=== PATIENT | male | born 1995 | race Caucasian/White ===

== ENCOUNTER 2020-04-12 20:56 | Inpatient (IN) ==
[2020-04-12 21:36] LABS: Basophils # (auto) 0.02 K/uL (0-0.2); Basophils % (auto) 0.2 %; Eosinophils # (auto) 0.09 K/uL (0-0.5); Eosinophils % (auto) 1.1 %; Hematocrit (blood only) 46.8 % (42-52); Hemoglobin 16.7 g/dL (14.0-18.0); Immature Granulocytes # (auto) 0.02 K/uL (0.00-0.02); Immature Granulocytes % (auto) 0.2 %; Lymphocytes # (auto) 2.84 K/uL (1.2-3.4); Lymphocytes % (auto) 34.5 %; Mean Corpuscular Hemoglobin 30.8 pg (25-34); Mean Corpuscular Hgb Conc 35.7 g/dL (32-36); Mean Corpuscular Volume 86.3 fL (80-100); Mean Platelet Volume 10.1 fL (7.4-10.4); Monocytes # (auto) 0.73 K/uL (0.11-0.59); Monocytes % (auto) 8.9 %; Neutrophils # (auto) 4.54 K/uL (1.4-6.5); Neutrophils % (auto) 55.1 %; Platelet Count 221 K/uL (130-400); RDW Coefficient of Variation 12.3 % (11.5-14.5); RDW Standard Deviation 38.4 fL (36.4-46.3); Red Blood Count 5.42 M/uL (4.7-6.1); White Blood Count 8.24 K/uL (4.8-10.8)
[2020-04-12 21:49] LABS: Appearance Urine Clear (Clear); Bilirubin Urine Negative (Negative); Blood Urine Negative (Negative); Color Urine Yellow; Glucose Urine UA Negative (Negative); Ketones Urine Negative (Negative); Leukocyte Esterase Urine Negative (Negative); Nitrite Urine Negative (Negative); Protein Urine Negative (Negative); Specific Gravity Urine 1.008 (1.000-1.030); Urobilinogen Urine Negative (Negative); pH Urine 5.5 (4.5-7.5)
[2020-04-12 22:23] LABS: Albumin Level 4.8 gm/dl (3.4-5.0); BUN Creatinine Ratio 14.1 (10-20); Calcium 8.8 mg/dl (8.5-10.1); Creatinine Clr Calc Pharmacy 122.2 ml/min; Est GFR (Non-African American) 88.9; Potassium 3.5 mmol/L (3.5-5.1)
[2020-04-12 22:26] LABS: Acetaminophen < 2 ug/ml (10-30); Salicylate < 1.7 mg/dl (2.8-20)
[2020-04-12 22:27] LABS: Amphetamines+Metham, Urine Neg (Neg); Barbiturates, Urine Neg (Neg); Benzodiazepine, Urine Neg (Neg); Cocaine, Urine Neg (Neg); MDMA (Ecstacy), Urine Neg (Neg); Methadone, Urine Neg (Neg); Opiate, Urine Neg (Neg); Phencyclidine, Urine Neg (Neg)
[2020-04-12 22:34] LABS: Albumin Globulin Ratio 1.2 (0.9-2); Bilirubin,Total 0.2 mg/dl (0.2-1); Globulin 3.9 gm/dl (2.5-4.0); Thyroid Stimulating Hormone 1.81 uIu/ml (0.300-4.500); Total Protein 8.7 gm/dl (6.4-8.2)
--- NOTE | 2020-04-12 23:48 | History & Physical Report ---
Date of Service April 12, 2020 Assessment & Plan (1) Suicide attempt: Suicide attempt/anxiety/depression/overdose of trazodone/alcohol use- Admit to telemetry and monitor for arrhythmia. NSS + KCl 20 mEq 100 mils per hour Regular diet Hold fluoxetine and trazodone. One-to-one observation. Consult psychiatry Present on Admission?: Yes (2) Overdose of trazodone: (3) Alcohol abuse: (4) Anxiety: (5) Depression: History of Present Illness Chief Complaint: The patient presented to the emergency department as an intentional trazodone overdose, reportedly having ingested 16 pills for a total of 800 mg, plus alcohol. Primary Care Provider: [facility] The patient is a 24-year-old male with a past medical history including anxiety and depression, who presents as noted above. Allergies Allergy/AdvReac Type Severity Reaction Status Date / Time No Known Allergies Allergy Unverified 04/12/20 21:14 Home Medications Home Medications Medication Instructions Recorded Confirmed Type fluoxetine 10 mg PO DAILY 04/12/20 04/12/20 History fluoxetine 20 mg PO DAILY 04/12/20 04/12/20 History trazodone 25 - 50 mg PO HS 04/12/20 04/12/20 History Past Med/Surg History Medical History (Updated 04/13/20 @ 01:35 by Corey Barrett) Anxiety Depression No pertinent family history Suicide attempt Surgical History (Updated 04/13/20 @ 01:31 by Corey Barrett) No pertinent past surgical history Social History Smoking Status: Never smoker Second Hand Exposure: No; Do You Dip or Chew Tobacco: No; Tobacco Cessation Education Requested by Patient: No Hx Alcohol Use: Yes Alcohol type: other Hx Substance Use: No Preferred Language: Yoruba Communication Ability: Effective Sweeper Brush Maker Machine Required: No Beliefs That Will Affect Care: None Current Living Situation: Alone Other Information That Helps Us Care for You: No Feels Safe at Home: Yes Safety Concerns: Feels Safe At This Time Assistive Devices: None Review of Systems Review of Systems: The patient denies chest pain, palpitations, shortness of breath, dyspnea on exertion, cough, lower extremity swelling, sore throat, fevers, chills, sweats, nausea, vomiting, diarrhea , constipation, abdominal pain, pelvic pain, blood in urine or stool, dysuria, urinary frequency or urgency, lightheadedness, dizziness, memory loss, loss of consciousness, rash, abnormal bruising or bleeding, imbalance, focal or generalized weakness, numbness or tingling in arms or legs, generalized arthralgias or myalgias, back or neck pain, or night sweats. The review of systems is otherwise negative other than for that already noted above, and at least 10 systems have been reviewed. Physical Exam Physical Exam: The patient is awake, alert and oriented 3, well developed and well nourished, normocephalic and atraumatic, lying in bed and in no acute distress. HEENT--PERRL, EOMI, mucous membranes and oropharynx dry. Neck--supple. No JVD. No bruits. Thyroid normal, trachea midline, no adenopathy. Heart--normal S1 and S2. No murmurs, rubs or gallops. Lungs--clear bilaterally, no respiratory distress, no accessory muscle use. Abdomen--normal bowel sounds and soft. Nontender. Nondistended, no hernias or masses, no organomegaly. Extremities--no cyanosis or clubbing. No edema. Dermatologic--normal skin turgor, normal color, no abnormal lymph nodes, no rash. Neurologic--cranial nerves II through XII grossly intact. Rheumatologic--normal range of motion. Psychiatric--normal affect. Results & Data Results & Data ([facility]) Vital Signs (Past 12 Hours) Vital Signs Temp Pulse Resp BP Pulse Ox 04/12/20 23:00 86 22 126/89 97 04/12/20 22:30 101 H 16 136/85 98 04/12/20 22:00 98 H 13 124/80 96 04/12/20 21:31 142/92 H 04/12/20 21:13 102 H 18 127/81 96 04/12/20 21:12 99.5 F 111 H 20 151/122 H 98 04/12/20 21:10 105 H 19 151/122 H 98 04/12/20 21:00 116 H 15 138/83 Laboratory Results Laboratory Results WBC 8.24 K/uL (4.8-10.8) 04/12/20 21:24 RBC 5.42 M/uL (4.7-6.1) 04/12/20 21:24 Hgb 16.7 g/dL (14.0-18.0) 04/12/20 21:24 Hct 46.8 % (42-52) 04/12/20 21:24 MCV 86.3 fL (80-100) 04/12/20 21:24 MCH 30.8 pg (25-34) 04/12/20 21: MCHC 35.7 g/dL (32-36) 04/12/20: RDW Std Deviation 38.4 fL (36.4-46.3) 04/12/20 21:24 RDW Coeff of Micah 12.3 % (11.5-14.5) 04/12/20: Plt Count 221 K/uL (130-400) 04/12/20 21: MPV 10.1 fL (7.4-10.4) 04/12/20 21:24 Immature Gran % (Auto) 0.2 % 04/12/20 21: Neut % (Auto) 55.1 % 04/12/20:24 Lymph % (Auto) 34.5 % 04/12/20 21:24 [place] % (Auto) 8.9 % 04/12/20 21:24 Eos % (Auto) 1.1 % 04/12/20: Baso % (Auto) 0.2 % 04/12/20: Neut # (Auto) 4.54 K/uL (1.4-6.5) 04/12/20:24 Lymph # (Auto) 2.84 K/uL (1.2-3.4) 04/12/20:24 [place] # (Auto) 0.73 K/uL (0.11-0.59) H 04/12/20 21:24 Eos # (Auto) 0.09 K/uL (0-0.5) 04/12/20:24 Baso # (Auto) 0.02 K/uL (0-0.2) 04/12/20: Immature Gran # (Auto) 0.02 K/uL (0.00-0.02) 04/12/20 21:24 Sodium 140 mmol/L (136-145) 04/12/20 21:24 Potassium 3.5 mmol/L (3.5-5.1) 04/12/20 21:24 Chloride 104 mmol/L (98-107) 04/12/20 21:24 Carbon Dioxide 31 mmol/L (21-32) 04/12/20 21:24 Anion Gap 5.0 (3-11) 04/12/20 21:24 BUN 16 mg/dl (7-18) 04/12/20 21:24 Creatinine 1.16 mg/dl (0.6-1.4) 04/12/20 21:24 Est Cr Clr Drug Dosing 122.2 ml/min 04/12/20 21:24 Est GFR ( Amer) 103.0 04/12/20 21:24 Est GFR (Non-Af Amer) 88.9 04/12/20 21:24 BUN/Creatinine Ratio 14.1 (10-20) 04/12/20 21:24 Glucose 82 mg/dl (70-99) 04/12/20 21:24 Calcium 8.8 mg/dl (8.5-10.1) 04/12/20 21:24 Total Bilirubin 0.2 mg/dl (0.2-1) 04/12/20 21:24 AST 19 U/L (15-37) 04/12/20 21:24 ALT 44 U/L (12-78) 04/12/20 21:24 Alkaline Phosphatase 114 U/L (45-117) 04/12/20 21:24 Total Protein 8.7 gm/dl (6.4-8.2) H 04/12/20 21:24 Albumin 4.8 gm/dl (3.4-5.0) 04/12/20 21: Globulin 3.9 gm/dl (2.5-4.0) 04/12/20 21:24 Albumin/Globulin Ratio 1.2 (0.9-2) 04/12/20 21:24 TSH 1.810 uIu/ml (0.300-4.500) 04/12/20 21:24 Urine Color Yellow 04/12/20 21:30 Urine Appearance Clear (Clear) 04/12/20 21:30 Urine pH 5.5 (4.5-7.5) 04/12/20 21:30 Ur Specific [place] 1.008 (1.000-1.030) 04/12/20 21:30 Urine Protein Negative (Negative) 04/12/20 21:30 Urine Glucose (UA) Negative (Negative) 04/12/20 21:30 Urine Ketones Negative (Negative) 04/12/20 21:30 Urine Blood Negative (Negative) 04/12/20 21:30 Urine Nitrite Negative (Negative) 04/12/20 21:30 Urine Bilirubin Negative (Negative) 04/12/20 21:30 Urine Urobilinogen Negative (Negative) 04/12/20 21:30 Ur Leukocyte Esterase Negative (Negative) 04/12/20 21:30 Salicylates < 1.7 mg/dl (2.8-20) L 04/12/20 21:24 Urine Opiates Screen Neg (Neg) 04/12/20 21:30 Ur Methadone, Qual Neg (Neg) 04/12/20 21:30 Acetaminophen < 2 ug/ml (10-30) L 04/12/20 21:24 Urine Barbiturates Neg (Neg) 04/12/20 21:30 Ur Phencyclidine (PCP) Neg (Neg) 04/12/20 21:30 U Amphetamin/Meth Scrn Neg (Neg) 04/12/20 21:30 MDMA (Ecstasy) Screen Neg (Neg) 04/12/20 21:30 U Benzodiazepines Scrn Neg (Neg) 04/12/20 21:30 Ur Cocaine Metabolite Neg (Neg) 04/12/20 21:30 U Marijuana (THC) Screen Neg (Neg) 04/12/20 21:30 Ethyl Alcohol mg/dL 78.0 mg/dl (0-3) H 04/12/20 21:24 Code Status & VTE Plan Code Status Full code VTE Prophylaxis Plan VTE Prophylaxis will be ordered: Yes PG Care Time/CCT Total # of Minutes Spent Total Time Spent with Patient: Total time spent is greater than 50% in coordination of care (as documented) at patient's floor/unit and/or counseling patient: Coding Level of Care Code 83590 Initial Inpt Care Lvl 2 Diagnoses Suicide attempt T14.91XA Overdose of trazodone T43.211A Alcohol abuse F10.10 Anxiety F41.9 Depression F32.9 Depression Type: unspecified (1) Depression Depression Type: unspecified Qualified Code(s): F32.9 - Major depressive disorder, single episode, unspecified
[2020-04-13] MEDS ORDERED: ACETAMINOPHEN 325 MG TAB PO PRN (00:17)
[2020-04-13] MEDS ORDERED: ONDANSETRON INJ 2 MG/ML 2 ML VIAL IV PRN (00:17)
[2020-04-13] MEDS ORDERED: ALUMINUM/MAGNESIUM SUSP 30 ML UDC PO PRN (00:17)
[2020-04-13] MEDS ORDERED: MAGNESIUM HYDROXIDE SUSP 30 ML UDC PO PRN (00:17)
[2020-04-13] MEDS ORDERED: INFLUENZA VIRUS QUAD VACCINE 0.5 ML SYR IM ONE (00:48)
[2020-04-13] MEDS ORDERED: INFLUENZA ADMINISTRATION CHARGE ONE (00:48)
[2020-04-13] MEDS: NSS + 20MEQ KCL 20 MEQ/1,000 ML BAG IV SCH ×2 (00:50→13:15)
--- NOTE | 2020-04-13 01:35 | Emergency Department Note ---
History of Present Illness General Chief Complaint: Overdose (Intentional) Stated Complaint: OVERDOSE Time Seen by Provider: 04/12/20 20:58 History of Present Illness Provider Complaint: + intentional overdose Time: 19:45 Substance Ingested trazadone: Substance Type: + Alcohol Strength of Substance: 50 Number of Pills Ingested: 16 Total Dose: 800 Time of Ingestion: 19:45 Intent: suicide attempt Context: Intentional Overdose: depressed, prior psychiatric issues, relationship problems and school problems Context: Accidental Overdose: was drinking then took pills Associated symptoms: depression Treatments Prior to Arrival: none Home Medications Home Medications Medication Instructions Recorded Confirmed Type fluoxetine 10 mg PO DAILY 04/12/20 04/12/20 History fluoxetine 20 mg PO DAILY 04/12/20 04/12/20 History trazodone 25 - 50 mg PO HS 04/12/20 04/12/20 History Allergies Allergy/AdvReac Type Severity Reaction Status Date / Time No Known Allergies Allergy Unverified 04/12/20 21:14 Past Med/Surg History Medical History (Updated 04/13/20 @ 01:35 by Corey Barrett) Anxiety Depression No pertinent family history Suicide attempt Surgical History (Updated 04/13/20 @ 01:31 by Corey Barrett) No pertinent past surgical history Social History Smoking Status: Never smoker Second Hand Exposure: No; Do You Dip or Chew Tobacco: No; Tobacco Cessation Education Requested by Patient: No Hx Alcohol Use: Yes Alcohol type: other Hx Substance Use: No Preferred Language: Spanish Communication Ability: Effective Rag Boiler Required: No Beliefs That Will Affect Care: None Current Living Situation: Alone Other Information That Helps Us Care for You: No Feels Safe at Home: Yes Safety Concerns: Feels Safe At This Time Assistive Devices: None Review of Systems A total of 10 systems reviewed and were otherwise negative Physical Exam Vital Signs: Vital Signs - 24 hr 04/12/20 21:00 04/12/20 21:10 04/12/20 21:12 Temperature 37.5 C Temperature Source Oral Pulse Rate 116 H 105 H 111 H Pulse Rate from Sp O2 Sensor 104 H 112 H Respiratory Rate 15 19 20 Respiratory Effort / Characteristics Non-Labored Sponta neous Respiratory Depth Normal Respiratory Patter n Regular Blood Pressure 138/83 151/122 H 151/122 H Blood Pressure Ann n 101 130 131 Pulse Oximetry 98 98 Oxygen Delivery Me thod Room Air Sepsis Recent Feve r Within 48 Hours No Sepsis New/Unexpla ined Change in Men damian Status No Sepsis Action Take n by Nursing No Action Required 04/12/20 21:13 04/12/20 21:31 04/12/20 22:00 Temperature Temperature Source Pulse Rate 102 H 98 H Pulse Rate from Sp O2 Sensor 102 H 101 H Respiratory Rate 18 13 Respiratory Effort / Characteristics Respiratory Depth Respiratory Patter n Blood Pressure 127/81 142/92 H 124/80 Blood Pressure Ann n 116 115 95 Pulse Oximetry 96 96 Oxygen Delivery Me thod Sepsis Recent Feve r Within 48 Hours Sepsis New/Unexpla ined Change in Men damian Status Sepsis Action Take n by Nursing 04/12/20 22:30 Temperature Temperature Source Pulse Rate 101 H Pulse Rate from Sp O2 Sensor 98 H Respiratory Rate 16 Respiratory Effort / Characteristics Respiratory Depth Respiratory Patter n Blood Pressure 136/85 Blood Pressure Ann n 95 Pulse Oximetry 98 Oxygen Delivery Me thod Sepsis Recent Feve r Within 48 Hours Sepsis New/Unexpla ined Change in Men damian Status Sepsis Action Take n by Nursing Physical Exam: Physical Exam GENERAL: Patient appears lethargic and intoxicated. HENT: Exam performed. - Head: Normocephalic and atraumatic. - Right Ear: External ear normal. No mastoid tenderness. - Left Ear: External ear normal. No mastoid tenderness. - Mouth/Throat: The oropharynx is clear and moist. No trismus in the jaw. No dental abscesses or uvula swelling. No oropharyngeal exudate or tonsillar abscesses. EYES: Conjunctivae and EOM are normal. Pupils are equal, round, and reactive to light. Right eye exhibits no discharge. Left eye exhibits no discharge. No scleral icterus. NECK: Normal range of motion. Neck supple. No JVD present. No spinous process tenderness present. No carotid bruit present. No rigidity. No tracheal deviation and normal range of motion present. No Brudzinski's sign and no Kernig's sign noted. CV: Normal rate, regular rhythm, normal heart sounds and intact distal pulses. There is no peripheral edema. Palpable radial pulses bue. PULM/CHEST: Effort normal and breath sounds normal. No respiratory distress. No stridor. He has no wheezes. He has no rales. - Chest Wall: He exhibits no tenderness. ABD: The abdomen is soft. Bowel sounds are normal. He has no distension. No mass is present. There is no tenderness. There is no rebound, no guarding, no Vanegas's sign and no tenderness at McBurney's point. Rovsig negative. : Penis is flaccid. No evidence of erection or priapism. MUSC/SKEL: Normal range of motion. There is no peripheral edema, tenderness or deformity. LYMPH: No cervical adenopathy. NEURO: He is alert and oriented to person, place, and time. He has normal strength. No cranial nerve deficit or sensory deficit. Coordination and gait normal. GCS eye subscore is 4. GCS verbal subscore is 5. GCS motor subscore is 6. Cerebellar tests wnl. SKIN: Skin is warm and dry. He is not diaphoretic. PSYCH: He has a normal mood and affect. Behavior is normal. Judgment and thought content normal. Course Course 2057: The patient was evaluated in room A4. A complete history and physical exam was performed. Cardiac monitoring: An order was placed for continuous cardiac monitoring. The monitor shows a rate of 90 with sinus rhythm Patient was placed on one-to-one psychiatric monitoring in suicide protocols were taken. Administered Medications Potassium Chloride/Sodium Chloride (Normal Saline W/20 Meq Kcl) 20 meq in 1,000 mls @ 80 mls/hr IV .[id number] IKE Stop: 05/13/20 00:16 Last Admin: 04/13/20 00:50 Dose: 80 mls/hr Documented by: [id number] Medical Decision Making Laboratory Data Result diagrams: 04/12/20 21:24 04/12/20 21:24 Lab Results 04/12/20 04/12/20 04/12/20 Range/Units 21:24 21:24 21:24 WBC 8.24 (4.8-10.8) K/uL RBC 5.42 (4.7-6.1) M/uL Hgb 16.7 (14.0-18.0) g/dL Hct 46.8 (42-52) % MCV 86.3 (80-100) fL MCH 30.8 (25-34) pg MCHC 35.7 (32-36) g/dL RDW Std Deviation 38.4 (36.4-46.3) fL RDW Coeff of Micah 12.3 (11.5-14.5) % Plt Count 221 (130-400) K/uL MPV 10.1 (7.4-10.4) fL Immature Gran % (Auto) 0.2 % Neut % (Auto) 55.1 % Lymph % (Auto) 34.5 % [place] % (Auto) 8.9 % Eos % (Auto) 1.1 % Baso % (Auto) 0.2 % Neut # (Auto) 4.54 (1.4-6.5) K/uL Lymph # (Auto) 2.84 (1.2-3.4) K/uL [place] # (Auto) 0.73 H (0.11-0.59) K/uL Eos # (Auto) 0.09 (0-0.5) K/uL Baso # (Auto) 0.02 (0-0.2) K/uL Immature Gran # (Auto) 0.02 (0.00-0.02) K/uL Sodium 140 (136-145) mmol/L Potassium 3.5 (3.5-5.1) mmol/L Chloride 104 (98-107) mmol/L Carbon Dioxide 31 (21-32) mmol/L Anion Gap 5.0 (3-11) BUN 16 (7-18) mg/dl Creatinine 1.16 (0.6-1.4) mg/dl Est Cr Clr Drug Dosing 122.2 ml/min Est GFR ( Amer) 103.0 Est GFR (Non-Af Amer) 88.9 BUN/Creatinine Ratio 14.1 (10-20) Glucose 82 (70-99) mg/dl Calcium 8.8 (8.5-10.1) mg/dl Total Bilirubin 0.2 (0.2-1) mg/dl AST 19 (15-37) U/L ALT 44 (12-78) U/L Alkaline Phosphatase 114 (45-117) U/L Total Protein 8.7 H (6.4-8.2) gm/dl Albumin 4.8 (3.4-5.0) gm/dl Globulin 3.9 (2.5-4.0) gm/dl Albumin/Globulin Ratio 1.2 (0.9-2) TSH 1.810 (0.300-4.500) uIu/ml Urine Color Urine Appearance (Clear) Urine pH (4.5-7.5) Ur Specific [place] (1.000-1.030) Urine Protein (Negative) Urine Glucose (UA) (Negative) Urine Ketones (Negative) Urine Blood (Negative) Urine Nitrite (Negative) Urine Bilirubin (Negative) Urine Urobilinogen (Negative) Ur Leukocyte Esterase (Negative) Salicylates < 1.7 L (2.8-20) mg/dl Urine Opiates Screen (Neg) Ur Methadone, Qual (Neg) Acetaminophen < 2 L (10-30) ug/ml Urine Barbiturates (Neg) Ur Phencyclidine (PCP) (Neg) U Amphetamin/Meth Scrn (Neg) MDMA (Ecstasy) Screen (Neg) U Benzodiazepines Scrn (Neg) Ur Cocaine Metabolite (Neg) U Marijuana (THC) Screen (Neg) Ethyl Alcohol mg/dL (0-3) mg/dl 04/12/20 04/12/20 04/12/20 Range/Units 21:24 21:30 21:30 WBC (4.8-10.8) K/uL RBC (4.7-6.1) M/uL Hgb (14.0-18.0) g/dL Hct (42-52) % MCV (80-100) fL MCH (25-34) pg MCHC (32-36) g/dL RDW Std Deviation (36.4-46.3) fL RDW Coeff of Micah (11.5-14.5) % Plt Count (130-400) K/uL MPV (7.4-10.4) fL Immature Gran % (Auto) % Neut % (Auto) % Lymph % (Auto) % [place] % (Auto) % Eos % (Auto) % Baso % (Auto) % Neut # (Auto) (1.4-6.5) K/uL Lymph # (Auto) (1.2-3.4) K/uL [place] # (Auto) (0.11-0.59) K/uL Eos # (Auto) (0-0.5) K/uL Baso # (Auto) (0-0.2) K/uL Immature Gran # (Auto) (0.00-0.02) K/uL Sodium (136-145) mmol/L Potassium (3.5-5.1) mmol/L Chloride (98-107) mmol/L Carbon Dioxide (21-32) mmol/L Anion Gap (3-11) BUN (7-18) mg/dl Creatinine (0.6-1.4) mg/dl Est Cr Clr Drug Dosing ml/min Est GFR ( Amer) Est GFR (Non-Af Amer) BUN/Creatinine Ratio (10-20) Glucose (70-99) mg/dl Calcium (8.5-10.1) mg/dl Total Bilirubin (0.2-1) mg/dl AST (15-37) U/L ALT (12-78) U/L Alkaline Phosphatase (45-117) U/L Total Protein (6.4-8.2) gm/dl Albumin (3.4-5.0) gm/dl Globulin (2.5-4.0) gm/dl Albumin/Globulin Ratio (0.9-2) TSH (0.300-4.500) uIu/ml Urine Color Yellow Urine Appearance Clear (Clear) Urine pH 5.5 (4.5-7.5) Ur Specific [place] 1.008 (1.000-1.030) Urine Protein Negative (Negative) Urine Glucose (UA) Negative (Negative) Urine Ketones Negative (Negative) Urine Blood Negative (Negative) Urine Nitrite Negative (Negative) Urine Bilirubin Negative (Negative) Urine Urobilinogen Negative (Negative) Ur Leukocyte Esterase Negative (Negative) Salicylates (2.8-20) mg/dl Urine Opiates Screen Neg (Neg) Ur Methadone, Qual Neg (Neg) Acetaminophen (10-30) ug/ml Urine Barbiturates Neg (Neg) Ur Phencyclidine (PCP) Neg (Neg) U Amphetamin/Meth Scrn Neg (Neg) MDMA (Ecstasy) Screen Neg (Neg) U Benzodiazepines Scrn Neg (Neg) Ur Cocaine Metabolite Neg (Neg) U Marijuana (THC) Screen Neg (Neg) Ethyl Alcohol mg/dL 78.0 H (0-3) mg/dl ECG Data Indication: toxicologic Rate (beats per minute): 100 Rhythm: sinus rhythm Findings: no ST depression and no ST elevation Additional Comments: MD QRS and QTc intervals within normal limits. MDM Narrative Vital signs stable. Labs are within normal with the exception of the serum alcohol level. Discussed with poison control who states that the patient needs to be observed for 12 to 16 hours. Patient has had no evidence of erection or preop is him in the emergency department. [facility] Sierra and then will be evaluated by psychiatry. Impression & Plan Overdose of trazodone, Depression, Anxiety, Suicide attempt, Alcohol abuse Discharge Plan Visit Data Chief Complaint: Overdose (Intentional) Stated Complaint: OVERDOSE ED Provider: Corey Barrett Discharge Problem: Overdose of trazodone, Depression, Anxiety, Suicide attempt, Alcohol abuse Patient Disposition: Admitted As Inpatient Discharge Instructions Interventions: ED Discharge Assessment Last Done: 04/12/20 23:14 Discharge Problem: Depression Qualifiers: Depression Type: unspecified Qualified Code(s): F32.9 - Major depressive disorder, single episode, unspecified
--- NOTE | 2020-04-13 10:46 | Medical Student Progress Note ---
Date of Service April 13, 2020 Assessment & Plan (1) Suicide attempt: Pt has a long Hx of depression and previous suicide attempts with trazodone as a teenager. He was off his SSRI for 1 week prior to this event which could have triggered this recent episode. He is stable today with 2 normal ECG's showing NO QTc prolongation, ST elevation, or depression or other arrhythmias. His lab values are stable and pt is recovering. His HR was elevated on admission and is still elevated at 96 today but is trending downward. He is on fluids now with his BP stable. Psych was consulted. Pt should restart his SSRI and meet with his psychiatrist for evaluation as to whether his SSRI is working for him with no side effects, and/or weigh the cost and benefits of continuing trazodone as his insomnia medication of choice considering his Hx. Pt is cooperative and seems more stable today. He could possibly be discharged to his parents pending psychiatry evaluation. Present on Admission?: Yes (2) Depression: As noted above. Psychiatry consulted. Depression Type: unspecified Qualified Code(s): F32.9 - Major depressive disorder, single episode, unspecified Present on Admission?: Yes Admission and Anticipated Discharge Date Admission Date: April 12, 2020 Subjective Pt is a 24 yo M w/ PMH Hx of Depression for the last 6 yrs with previous suicide attempts via trazadone overdose that came in to the ER with his girlfriend after taking 800-900mg of trazadone after consuming alcohol at the bars with friends. Pt states he was drinking with friends at the bar after he went home, he went to take a pill of trazodone to help him sleep. He accidently spilled his pills and then proceeded to take many pills and end his life. His girlfriend came over and saw what had happened and took him to the ER. Pt is normalled on trazadone for insomnia and Fluoxetine for his depression. He had been off the fluoxetine for the last week, prior to the attempt because he had left them at his parents place. Pt states he is feeling mentally better today although physically not so much. He would like to go home to his parents today. Notes that he has had some nausea but no vomiting. Worst symptoms would be the dry mouth and headache. Did come in with an elevated HR, but pt states that its been getting better. No, chest pain, palpitaions, or SOB Review of Systems Review of Systems: All systems reviewed & are unremarkable except as noted in Subjective Constitutional: no fever Ear, Nose, Mouth, Throat: no dizziness Respiratory: no dyspnea Cardiovascular: as per Subjective / HPI Gastrointestinal: no abdominal pain and no bloating Neurologic: no localized weakness, no loss of sensation and no syncope Psychiatric: + depression; no hopelessness and no suicidal ideation Physical Exam Constitutional: well nourished and + lethargic; no acute distress Eyes: PERRL, normal accommodation and + abnormal light reflex; no nystagmus and no photophobia ENMT: Ears: no external ear abnormality Nose: no external nose abnormality Neck: normal visual inspection Respiratory: normal respiratory effort; no respiratory distress and no cough Auscultation: lungs clear to auscultation bilaterally; no crackles, no rales, no rhonchi and no wheezes Cardiovascular: Rate/Rhythm: regular rate and regular rhythm Heart Sounds: normal S1; no click, no gallop, no murmur and no cardiac rub Vessels: no carotid bruit Gastrointestinal (Abdomen): Inspection/Auscultation: abdomen normal to inspection; abdomen not distended Neurologic: PERRL, EOMI, accommodation nl, no face palsy, no dysarthria Psychiatric: Orientation: alert and oriented x 3 Eye Contact: + fair eye contact Affect: + depressed affect Thought Process: clear/coherent thought process Suicidal Thoughts: denies suicidal thoughts Results & Data ([facility]) Vital Signs (Past 12 Hours) Vital Signs Temp Pulse Pulse Resp BP BP Pulse Ox 04/13/20 08:00 36.8 C 74 96 H 16 118/70 99 04/13/20 03:59 37.2 C 94 H 16 107/67 95 04/13/20 01:55 36.5 C 75 18 107/69 96 04/13/20 00:55 69 04/13/20 00:33 36.3 C L 82 16 95/62 L 100 04/12/20 23:30 85 15 110/69 96 04/12/20 23:00 86 22 126/89 97 Laboratory Results CBC- within normal Limits. CMP- Within normal Limits EKG- Normal- Regular rate and rhythm with normal QRS and QTc interval. Toxicology was negative for all substance except for alcohol on 04/12. TSH was normal at 1.81 Laboratory Results WBC 8.24 K/uL (4.8-10.8) 04/12/20 21: RBC 5.42 M/uL (4.7-6.1) 04/12/20 21:24 Hgb 16.7 g/dL (14.0-18.0) 04/12/20 21:24 Hct 46.8 % (42-52) 04/12/20 21:24 MCV 86.3 fL (80-100) 04/12/20 21: MCH 30.8 pg (25-34) 04/12/20 21: MCHC 35.7 g/dL (32-36) 04/12/20: RDW Std Deviation 38.4 fL (36.4-46.3) 04/12/20: RDW Coeff of Micah 12.3 % (11.5-14.5) 04/12/20 21: Plt Count 221 K/uL (130-400) 04/12/20: MPV 10.1 fL (7.4-10.4) 04/12/20 21:24 Immature Gran % (Auto) 0.2 % 04/12/20 21: Neut % (Auto) 55.1 % 04/12/20: Lymph % (Auto) 34.5 % 04/12/20: [place] % (Auto) 8.9 % 04/12/20:24 Eos % (Auto) 1.1 % 04/12/20: Baso % (Auto) 0.2 % 04/12/20: Neut # (Auto) 4.54 K/uL (1.4-6.5) 04/12/20: Lymph # (Auto) 2.84 K/uL (1.2-3.4) 04/12/20:24 [place] # (Auto) 0.73 K/uL (0.11-0.59) H 04/12/20: Eos # (Auto) 0.09 K/uL (0-0.5) 04/12/20 21: Baso # (Auto) 0.02 K/uL (0-0.2) 04/12/20: Immature Gran # (Auto) 0.02 K/uL (0.00-0.02) 11/09/20 21:24 Sodium 140 mmol/L (136-145) 04/12/20 21:24 Potassium 3.5 mmol/L (3.5-5.1) 04/12/20 21:24 Chloride 104 mmol/L (98-107) 04/12/20 21:24 Carbon Dioxide 31 mmol/L (21-32) 04/12/20 21:24 Anion Gap 5.0 (3-11) 04/12/20 21:24 BUN 16 mg/dl (7-18) 04/12/20 21:24 Creatinine 1.16 mg/dl (0.6-1.4) 04/12/20 21:24 Est Cr Clr Drug Dosing 122.2 ml/min 04/12/20 21:24 Est GFR ( Amer) 103.0 04/12/20 21:24 Est GFR (Non-Af Amer) 88.9 04/12/20 21:24 BUN/Creatinine Ratio 14.1 (10-20) 04/12/20 21:24 Glucose 82 mg/dl (70-99) 04/12/20 21:24 Calcium 8.8 mg/dl (8.5-10.1) 04/12/20 21:24 Total Bilirubin 0.2 mg/dl (0.2-1) 04/12/20 21:24 AST 19 U/L (15-37) 04/12/20 21:24 ALT 44 U/L (12-78) 04/12/20 21:24 Alkaline Phosphatase 114 U/L (45-117) 04/12/20 21:24 Total Protein 8.7 gm/dl (6.4-8.2) H 04/12/20 21:24 Albumin 4.8 gm/dl (3.4-5.0) 04/12/20 21:24 Globulin 3.9 gm/dl (2.5-4.0) 04/12/20 21:24 Albumin/Globulin Ratio 1.2 (0.9-2) 04/12/20 21:24 TSH 1.810 uIu/ml (0.300-4.500) 04/12/20 21:24 Urine Color Yellow 04/12/20 21:30 Urine Appearance Clear (Clear) 04/12/20 21:30 Urine pH 5.5 (4.5-7.5) 11/09/20 21:30 Ur Specific [place] 1.008 (1.000-1.030) 04/12/20 21:30 Urine Protein Negative (Negative) 04/12/20 21:30 Urine Glucose (UA) Negative (Negative) 04/12/20 21:30 Urine Ketones Negative (Negative) 04/12/20 21:30 Urine Blood Negative (Negative) 04/12/20 21:30 Urine Nitrite Negative (Negative) 04/12/20 21:30 Urine Bilirubin Negative (Negative) 04/12/20 21:30 Urine Urobilinogen Negative (Negative) 04/12/20 21:30 Ur Leukocyte Esterase Negative (Negative) 04/12/20 21:30 Salicylates < 1.7 mg/dl (2.8-20) L 04/12/20 21:24 Urine Opiates Screen Neg (Neg) 04/12/20 21:30 Ur Methadone, Qual Neg (Neg) 04/12/20 21:30 Acetaminophen < 2 ug/ml (10-30) L 04/12/20 21:24 Urine Barbiturates Neg (Neg) 04/12/20 21:30 Ur Phencyclidine (PCP) Neg (Neg) 04/12/20 21:30 U Amphetamin/Meth Scrn Neg (Neg) 04/12/20 21:30 MDMA (Ecstasy) Screen Neg (Neg) 04/12/20 21:30 U Benzodiazepines Scrn Neg (Neg) 04/12/20 21:30 Ur Cocaine Metabolite Neg (Neg) 04/12/20 21:30 U Marijuana (THC) Screen Neg (Neg) 04/12/20 21:30 Ethyl Alcohol mg/dL 78.0 mg/dl (0-3) H 04/12/20 21:24
--- NOTE | 2020-04-13 11:21 | Psychiatric Consultation ---
Date of Consultation April 13, 2020 Impression / Recommendations Impression Dr. Devora Javed was directly involved in review and discussion of the patient's case and participated in medical decision making regarding treatment recommendations. RECOMMENDATIONS: 04/13 - Psychiatric consultation requested by hospitalist service to evaluate patient s/p intentional trazodone overdose. - Given recent overdose of a serotonergic agent, would not yet advise res uming patient's home dose of fluoxetine or resuming trazodone until clinically improved. Poison control has been involved with providing recommendations and care continues to be managed by hospitalist service. - Pt does admit that he ingested excessive amounts of trazodone, though is not able to give a clear explanation of the thoughts leading to this action. He does believe that his alcohol use prior to the overdose may have played a role in what he is describing to be an impulsive action. Pt denies SI presently and is hopeful he could be safety planned home - reporting intention to return to [place] to stay with his parents. 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 - Concerns related to this case are that the patient has history of several previous suicide attempts by overdose, many of which he did not seek subsequent medical treatment for. We have reached out to his outpatient providers, and have learned that this therapist has been recommending intensive outpatient treatment and that the patient missed his most recent therapy appointment. - There is a possibility that the patient could be safety planned home if his parents and outpatient treatment team are agreeable and deny significant safety concerns. We will continue attempts to gather collateral information from parents. Until or unless a safety plan can be arranged, patient should not be permitted to leave the hospital AMA. There is a 302 petitioning statement, and mental health delegates through [facility] can issue a mental health warrant if patient is demanding to leave before a safe and appropriate discharge plan can be arranged. Please feel free to reach out to our service for assistance with this process should it be necessary. - We appreciate the opportunity to participate in the care of this patient. Please reach out to our service with any additional questions or updates. ROIs have been obtained for the patient's outpatient psychiatric providers, and we will plan to fax our consultation and subsequent documentation to allow for coordination of care. Risk Factors Assessment Do You Have Access To A Gun?: No Psych History Identifying Data 24-year-old male admitted medically on 04/12/2020 after presenting to the ED s/p intentional trazodone overdose. Poison control contacted and reportedly recommended a period of observation. Psychiatric consultation was requested to evaluate patient s/p intentional overdose. Chief Complaint "I took a bunch of trazodone pills." History of Present Illness Vini Berry is a 24-year-old male admitted medically on 04/12/2020 after presenting to the ED, reportedly brought by girlfriend, after an intentional trazodone overdose. Pt reported taking ~16 tablets of 50mg trazodone. BAL on arrival to the ED was 78. Pt did admit that he had forgotten his fluoxetine at his parent's home, and therefore has been off his antidepressant medications for ~2 weeks. 302 petitioning statement was completed by the patient's girlfriend, and reads: "Avelino said this afternoon (04/12/20) that he failed to take his antidepressants for approximately 2 weeks. He has been showing signs of his depressive behaviors, such as sudden mood swings and anger for a little over a week. Last night (04/11/20) Avelino said that he accidently cut his hand while cooking and he like the feeling. Tonight (04/12/20) he FaceTimed me (while I was on my way to his place) saying "he accidently" took approximately 16 trazodone pills and didn't wan to throw them up." Psychiatric consultation was requested to evaluate patient s/p intentional overdose. Pt is cooperative with psychiatric assessment and admits "I took a bunch of trazodone pills", but admits he is not quite sure of events leading to his overdose. Pt states, "I'm better now, I can't really explain what happened." He does acknowledge that he had been at a bar with friends and patient personally believes his alcohol use had a lot to do with the "sporadic" (though patient seemed to imply he meant 'impulsive') decision to overdose. Pt states that he had returned home after the bar, and spilled his container of trazodone while taking his evening dose. Pt is unable to identify any specific thoughts at that moment, but does admit to taking numerous additional pills. Pt states that he had forgotten his fluoxetine at his parents' home several weeks ago, but states he was able to have the medication returned to him this weekend. Pt states he had taken his doses for two days prior to the overdose. Pt states he believes he was not trying to end his life, as the fluoxetine was next to the trazodone "but I didn't take them too." Pt does admit to history of depression for the past 6 years, with one mental health hospitalization ~4 years ago. Pt does admit to several suicide attempts by overdose, the last occurring 2-3 years ago. Pt states this overdose felt different, as typically he struggles with suicidal thoughts for several days or weeks and his overdoses are pre-meditated. We did discuss that even impulsive overdoses are concerning, and that we will need to engage his support network in order to determine the next appropriate steps. Pt did sign ROIs for his outpatient psychiatric providers and for his mother. Pt states he has already informed his family of the situation and is hoping arrangements can be made for him to be safety planned home. Potential options were explained to the patient, including potential for safety planning, but also possibility of inpatient psychiatric treatment. Pt states that at this time he does not feel inpatient treatment would be beneficial. He is denying SI presently and seems to be willing to work with family for appropriate supervision. He did deny other needs or concerns at this time. We did receive information after this encounter, that the patient no-showed for his most recent therapy appointment (day of admission). She had recommended intensive outpatient treatment several months ago when patient had disclosed SI without plan or intent. Therapist did state the patient has appeared more s table since that time, but she did endorse concern related to his missed appointment. Past Psychiatric History Current Psychiatric Diagnosis: Depression Outpatient Services: Psychiatrist - Dr. Maurisio Christensen Therapist - Zuleika Spivey Previous Psych Admissions: Reports a previous psychiatric admission "in high school" at [facility] ~4 years ago. Do You Have Access To A Gun?: No History of Previous Suicide Attempt: Yes (last occurred ~2-3 years ago) Describe Attempts in the Past: several attempts by overdose, sought medical attention once Past Medication Trials: Per patient report: 1. Effexor 2. Zoloft 3. Wellbutrin Allergies Allergy/AdvReac Type Severity Reaction Status Date / Time No Known Allergies Allergy Unverified 04/12/20 21:14 Home Medications Home Medications Medication Instructions Recorded Confirmed Type fluoxetine 10 mg PO DAILY 04/12/20 04/12/20 History fluoxetine 20 mg PO DAILY 04/12/20 04/12/20 History trazodone 25 - 50 mg PO HS 04/12/20 04/12/20 History Family History Pt suspects family history of depression. He reports alcohol abuse in a grandfather and a cousin who attempted suicide. Substance Abuse History Denies significant alcohol or tobacco use. Denies use of illicit substances. Pt had been consuming alcohol prior to overdose, BAL on presentation to ED was 78. Personal History Living Arrangements: Apartment (while attending [employer]; parents live at home in [place]) Highest Grade Completed: Some College (attending [employer] currently ) Employment Status: Student Marital Status: Single (does have a girlfriend) Number Of Children: None Beliefs That Will Affect Care: None (reports it is "complicated") History of Legal Problems: Denied Psychological Trauma History Comment: Denied Patient History Medical History Anxiety Depression No pertinent family history Suicide attempt Surgical History No pertinent past surgical history Social History Smoking Status: Never smoker Second Hand Exposure: No; Do You Dip or Chew Tobacco: No; Tobacco Cessation Education Requested by Patient: No Hx Alcohol Use: Yes Alcohol type: other Hx Substance Use: No Preferred Language: American Communication Ability: Effective Supervisor Mill Required: No Beliefs That Will Affect Care: None (reports it is "complicated") Current Living Situation: Alone Other Information That Helps Us Care for You: No Feels Safe at Home: Yes Safety Concerns: Feels Safe At This Time Assistive Devices: None Physical Exam Psychiatric: Orientation: alert, oriented x 3 and cooperative Apperance: appropriately dressed, appropriately groomed and appeared stated age Fit- appearing male, laying in bed - appearing tired but not in acute distress. Pt is appropriately dressed for clinical setting, wearing paper scrubs. Level of hygiene and grooming appear adequate. Eye Contact: good eye contact Motor Behavior: no abnormal motor movements (observed while laying in bed) Speech: normal rate/rhythm/volume of speech Affect: + blunted affect (appearing fatigued, subdued but not overtly depressed) Mood: no depressed mood ("I'm better now, I can't really explain what happened.") Thought Process: goal directed thought process and clear/coherent thought process Thought Content: reality based without delusions; no hopelessness and no worthlessness Suicidal Thoughts: denies suicidal thoughts and denies suicidal intent Homicidal Thoughts: denies homicidal thoughts Hallucinations: no auditory hallucinations and no visual hallucinations Cognition: recent memory grossly intact, attention grossly intact and language grossly intact Estimated Intelligence: consistent with education level Insight: + fair insight Judgement: + fair judgement Vital Signs (Past 24 Hours): Last Vital Signs Temp 36.8 C 04/13/20 08:00 Pulse 96 H 04/13/20 08:00 Resp 16 04/13/20 08:00 BP 118/70 04/13/20 08:00 Pulse Ox 99 04/13/20 08:00 Review of Systems Constitutional: reports fatigue, leg weakness Cardiovascular: denied Respiratory: denied Gastrointestinal: denied Neurological: denied Psychiatric: denies symptoms other than stated above Total of at least 10 systems reviewed, pertinent positives as above and in HPI. Results & Data ([facility]) Medications Administered Potassium Chloride/Sodium Chloride (Normal Saline W/20 Meq Kcl) 20 meq in 1,000 mls @ 80 mls/hr IV .[id number] IKE Stop: 05/13/20 00:16 Last Admin: 04/13/20 00:50 Dose: 80 mls/hr Documented by: [id number] Coding Level of Care Code 22943 U Intl Hosp Care Lvl 3
--- NOTE | 2020-04-13 11:47 | Electrocardiogram Report ---
Test Reason : Blood Pressure : / mmHG Vent. Rate : 100 BPM Atrial Rate : 100 BPM P-R Int : 138 ms QRS Dur : 084 ms QT Int : 346 ms P-R-T Axes : 053 051 022 degrees QTc Int : 446 ms Normal sinus rhythm Normal ECG No previous ECGs available Confirmed by Tha Bruce ([id number]) on 04/13/2020 11:47:22 AM Referred By: REFERRED SELF Confirmed By:Tha Bruce
--- NOTE | 2020-04-13 11:54 | Electrocardiogram Report ---
Test Reason : Blood Pressure : / mmHG Vent. Rate : 077 BPM Atrial Rate : 077 BPM P-R Int : 144 ms QRS Dur : 084 ms QT Int : 372 ms P-R-T Axes : 057 046 046 degrees QTc Int : 420 ms Normal sinus rhythm Early repolarization Normal ECG When compared with ECG of 12-APR-2020 21:06, (unconfirmed) No significant change was found Confirmed by Tha Bruce ([id number]) on 04/13/2020 11:54:23 AM Referred By: REFERRED SELF Confirmed By:Tha Bruce
--- NOTE | 2020-04-13 22:41 | Hospitalist Progress Note ---
Date of Service April 13, 2020 Assessment & Plan (1) Suicide attempt: Suicide attempt/anxiety/depression/overdose of trazodone/alcohol use- Admit to telemetry and monitor for arrhythmia. No signs of arrythmia. No QTC prolongation. desean remain on NSS + KCl 20 mEq 100 mils per hour Regular diet Hold fluoxetine and trazodone. One-to-one observation. Consult psychiatry, appreciate input. (2) Overdose of trazodone: (3) Alcohol abuse: (4) Anxiety: (5) Depression: Admission and Anticipated Discharge Date Admission Date: April 12, 2020 Subjective Patient reports feeling well. No complaints. Review of Systems Review of Systems: All systems reviewed & are unremarkable except as noted in HPI & below Physical Exam Physical Exam: The patient is awake, alert and oriented 3, well developed and well nourished, normocephalic and atraumatic, lying in bed and in no acute distress. HEENT--PERRL, EOMI, mucous membranes and oropharynx dry. Neck--supple. No JVD. No bruits. Thyroid normal, trachea midline, no adenopathy. Heart--normal S1 and S2. No murmurs, rubs or gallops. Lungs--clear bilaterally, no respiratory distress, no accessory muscle use. Abdomen--normal bowel sounds and soft. Nontender. Nondistended, no hernias or masses, no organomegaly. Extremities--no cyanosis or clubbing. No edema. Dermatologic--normal skin turgor, normal color, no abnormal lymph nodes, no rash. Neurologic--cranial nerves II through XII grossly intact. Rheumatologic--normal range of motion. Psychiatric--normal affect. Results & Data Results & Data ([facility]) Vital Signs (Past 12 Hours) Vital Signs Temp Pulse Pulse Resp BP Pulse Ox 04/13/20 19:02 36.6 C 77 18 104/62 96 04/13/20 15:37 36.6 C 71 20 103/59 L 95 04/13/20 11:42 36.8 C 88 16 121/63 100 PG Care Time/CCT Total # of Minutes Spent Total Time Spent with Patient: Total time spent is greater than 50% in coordination of care (as documented) at patient's floor/unit and/or counseling patient: Coding Level of Care Code 06535 Subseq Hosp Care Lvl 2 Diagnoses Suicide attempt T14.91XA Overdose of trazodone T43.211A Alcohol abuse F10.10 Anxiety F41.9 Depression F32.9 Depression Type: unspecified Time Spent (min) 25 (1) Depression Depression Type: unspecified Qualified Code(s): F32.9 - Major depressive disorder, single episode, unspecified
[2020-04-14] MEDS: NSS + 20MEQ KCL 20 MEQ/1,000 ML BAG IV SCH (00:30)
[2020-04-14 08:39] LABS: Hematocrit (blood only) 39.6 % (42-52); Hemoglobin 13.1 g/dL (14.0-18.0); Mean Corpuscular Hemoglobin 29.3 pg (25-34); Mean Corpuscular Hgb Conc 33.1 g/dL (32-36); Mean Corpuscular Volume 88.6 fL (80-100); Mean Platelet Volume 10.5 fL (7.4-10.4); Platelet Count 188 K/uL (130-400); RDW Coefficient of Variation 12.6 % (11.5-14.5); RDW Standard Deviation 40.1 fL (36.4-46.3); Red Blood Count 4.47 M/uL (4.7-6.1); White Blood Count 7.23 K/uL (4.8-10.8)
[2020-04-14 09:06] LABS: BUN Creatinine Ratio 14.2 (10-20); Calcium 8.9 mg/dl (8.5-10.1); Creatinine Clr Calc Pharmacy 120.1 ml/min; Est GFR (African American) 111.1; Est GFR (Non-African American) 95.8; Potassium 3.9 mmol/L (3.5-5.1)
--- NOTE | 2020-04-14 09:43 | Medical Student Progress Note ---
Date of Service April 14, 2020 Assessment & Plan (1) Suicide attempt: Pt has a long Hx of depression and previous suicide attempts with trazodone as a teenager. He was off his SSRI for 1 week prior to this event which could have triggered this recent episode. He has been stable with 2 prior normal ECG's showing NO QTc prolongation, ST elevation, or depression or other arrhythmias. His recent ECG (04/14) was abnormal with some new T wave inversions in the inferior leads. Pt's HR is back to normal values. His recent CBC 04/14 was abnormal. He is on fluids now with his BP stable. CBC abnormalities are probably due to dilution, will D/C fluids today. Pt is eating and drinking on his own with a good appetite. Psych was consulted. Pt's medications have been D/C during his stay and per psychiatry consult, should continue to be held. A plan is being worked on with his parents and his home psychiatrist. Pt is to continue his stay at [facility] until an agreeable plan has been established and he is deemed safe to return home with an intensive plan in place. Refer to psychiatry note for more information. (2) Depression: As noted above. Psychiatry consulted. Will hold all meds until a plan is agreed on. Depression Type: unspecified Qualified Code(s): F32.9 - Major depressive disorder, single episode, unspecified Admission and Anticipated Discharge Date Admission Date: April 12, 2020 Subjective Pt is a 24 yo M w/ PMH Hx of Depression for the last 6 yrs with previous suicide attempts via trazadone overdose that came in to the ER with his girlfriend after taking 800-900mg of trazadone after consuming alcohol at the bars with friends. Pt states he is feeling well today. He was able to speak to psychiatry yesterday and was informed that his parents and home psychiatrist have been contacted and a plan is being worked on. He states he does not have a LEBRON today and this nausea is better. His appetite is normal. States No chest pain, SOB, or palpitations Review of Systems Review of Systems: All systems reviewed & are unremarkable except as noted in Subjective Cardiovascular: as per Subjective / HPI Psychiatric: + depression; no hopelessness and no suicidal ideation Physical Exam Constitutional: well nourished and + lethargic; no acute distress Eyes: PERRL, normal accommodation and + abnormal light reflex; no nystagmus and no photophobia ENMT: Ears: no external ear abnormality Nose: no external nose abnormality Neck: normal visual inspection Respiratory: normal respiratory effort; no respiratory distress and no cough Auscultation: lungs clear to auscultation bilaterally; no crackles, no rales, no rhonchi and no wheezes Cardiovascular: Rate/Rhythm: regular rate and regular rhythm Heart Sounds: no gallop, no murmur and no cardiac rub Gastrointestinal (Abdomen): Inspection/Auscultation: abdomen normal to inspection; abdomen not distended Neurologic: PERRL, EOMI, accommodation nl, no face palsy, no dysarthria Psychiatric: Orientation: alert and oriented x 3 Eye Contact: + fair eye contact Affect: + depressed affect Thought Process: clear/coherent thought process Suicidal Thoughts: denies suicidal thoughts Results & Data ([facility]) Vital Signs (Past 12 Hours) Vital Signs Temp Pulse Pulse Resp BP Pulse Ox 04/14/20 08:00 58 L 04/14/20 07:00 36.3 C L 65 18 109/69 92 04/14/20 04:29 36.7 C 60 18 141/75 H 96 04/14/20 00:00 69 04/13/20 22:55 36.6 C 66 18 115/56 L 96 Laboratory Results CBC is abnormal today. RBC, Hgb, and Hct are low today. Had a normal CBC last 04/12. Laboratory Results WBC 7.23 K/uL (4.8-10.8) 04/14/20 08:21 RBC 4.47 M/uL (4.7-6.1) L 04/14/20 08:21 Hgb 13.1 g/dL (14.0-18.0) L D 04/14/20 08:21 Hct 39.6 % (42-52) L 04/14/20 08:21 MCV 88.6 fL (80-100) 04/14/20 08:21 MCH 29.3 pg (25-34) 04/14/20 08:21 MCHC 33.1 g/dL (32-36) 04/14/20 08:21 RDW Std Deviation 40.1 fL (36.4-46.3) 04/14/20 08:21 RDW Coeff of Micah 12.6 % (11.5-14.5) 11/11/20 08:21 Plt Count 188 K/uL (130-400) 04/14/20 08:21 MPV 10.5 fL (7.4-10.4) H 04/14/20 08:21 Immature Gran % (Auto) 0.2 % 04/12/20 21:24 Neut % (Auto) 55.1 % 04/12/20 21:24 Lymph % (Auto) 34.5 % 04/12/20 21:24 [place] % (Auto) 8.9 % 04/12/20 21:24 Eos % (Auto) 1.1 % 04/12/20 21:24 Baso % (Auto) 0.2 % 04/12/20 21:24 Neut # (Auto) 4.54 K/uL (1.4-6.5) 04/12/20 21:24 Lymph # (Auto) 2.84 K/uL (1.2-3.4) 04/12/20 21:24 [place] # (Auto) 0.73 K/uL (0.11-0.59) H 04/12/20 21:24 Eos # (Auto) 0.09 K/uL (0-0.5) 04/12/20 21:24 Baso # (Auto) 0.02 K/uL (0-0.2) 04/12/20 21:24 Immature Gran # (Auto) 0.02 K/uL (0.00-0.02) 04/12/20 21:24 Sodium 139 mmol/L (136-145) 04/14/20 08:21 Potassium 3.9 mmol/L (3.5-5.1) 04/14/20 08:21 Chloride 107 mmol/L (98-107) 04/14/20 08:21 Carbon Dioxide 28 mmol/L (21-32) 04/14/20 08:21 Anion Gap 4.0 (3-11) 04/14/20 08:21 BUN 16 mg/dl (7-18) 04/14/20 08:21 Creatinine 1.09 mg/dl (0.6-1.4) 04/14/20 08:21 Est Cr Clr Drug Dosing 120.1 ml/min 04/14/20 08:21 Est GFR ( Amer) 111.1 04/14/20 08:21 Est GFR (Non-Af Amer) 95.8 04/14/20 08:21 BUN/Creatinine Ratio 14.2 (10-20) 04/14/20 08:21 Glucose 90 mg/dl (70-99) 04/14/20 08:21 Calcium 8.9 mg/dl (8.5-10.1) 04/14/20 08:21 Total Bilirubin 0.2 mg/dl (0.2-1) 04/12/20 21:24 AST 19 U/L (15-37) 04/12/20 21:24 ALT 44 U/L (12-78) 04/12/20 21:24 Alkaline Phosphatase 114 U/L (45-117) 04/12/20 21:24 Total Protein 8.7 gm/dl (6.4-8.2) H 04/12/20 21:24 Albumin 4.8 gm/dl (3.4-5.0) 04/12/20 21:24 Globulin 3.9 gm/dl (2.5-4.0) 04/12/20 21:24 Albumin/Globulin Ratio 1.2 (0.9-2) 04/12/20 21:24 TSH 1.810 uIu/ml (0.300-4.500) 04/12/20 21:24 Urine Color Yellow 04/12/20 21:30 Urine Appearance Clear (Clear) 04/12/20 21:30 Urine pH 5.5 (4.5-7.5) 04/12/20 21:30 Ur Specific [place] 1.008 (1.000-1.030) 04/12/20 21:30 Urine Protein Negative (Negative) 04/12/20 21:30 Urine Glucose (UA) Negative (Negative) 04/12/20 21:30 Urine Ketones Negative (Negative) 04/12/20 21: Urine Blood Negative (Negative) 04/12/20: Urine Nitrite Negative (Negative) 04/12/20: Urine Bilirubin Negative (Negative) 04/12/20 21: Urine Urobilinogen Negative (Negative) 04/12/20:30 Ur Leukocyte Esterase Negative (Negative) 04/12/20 21:30 Salicylates < 1.7 mg/dl (2.8-20) L 04/12/20 21:24 Urine Opiates Screen Neg (Neg) 04/12/20 21:30 Ur Methadone, Qual Neg (Neg) 04/12/20 21:30 Acetaminophen < 2 ug/ml (10-30) L 04/12/20 21:24 Urine Barbiturates Neg (Neg) 04/12/20 21:30 Ur Phencyclidine (PCP) Neg (Neg) 04/12/20 21:30 U Amphetamin/Meth Scrn Neg (Neg) 04/12/20 21:30 MDMA (Ecstasy) Screen Neg (Neg) 04/12/20 21:30 U Benzodiazepines Scrn Neg (Neg) 04/12/20 21:30 Ur Cocaine Metabolite Neg (Neg) 04/12/20 21:30 U Marijuana (THC) Screen Neg (Neg) 04/12/20 21:30 Ethyl Alcohol mg/dL 78.0 mg/dl (0-3) H 04/12/20 21:24 Diagnostic Findings Recent ECG this morning was abnormal. Refer to report. Pt had new T wave inversions in the inferior leads.
--- NOTE | 2020-04-14 13:50 | Communication Note ---
Date of Service: April 14, 2020 This provider had the opportunity to speak with patient's outpatient psychiatrist, Dr. Christensen, from [facility]. Provided updates on patient's condition and requested information regarding patient's treatment history. Concern was expressed regarding the patient's overdose - regardless of the presence of suicidal intent these behaviors are certainly concerning. Patient's mother was contacted regarding safety planning, and she stated they have been responsible for securing and dispensing the patient's medications in the past. Mother indicated that she felt comfortable with patient returning home. Despite family feeling comfortable with option for safety planning, we have heard concerns from both of the patient's outpatient providers regarding his episodes of suicidality and history of overdoses. Input of these providers is certainly appreciated and helpful in making treatment decisions. It is our recommendation that patient be admitted for inpatient psychiatric treatment after he is medically cleared. [address] petitioning statement is in place and can be utilized to pursue involuntary admission is patient is unwilling for treatment. Feel free to update our service as patient is approaching medical clearance and we will be happy to assist with referral process to inpatient psychiatric treatment.
--- NOTE | 2020-04-14 14:37 | Communication Note ---
Date of Service: April 14, 2020 Patient is medically cleared for discharge.
[2020-04-14 14:58] VITALS: O2SAT 95
[2020-04-14 20:35] VITALS: TEMP 98.6
[2020-04-14 21:32] VITALS: BP 109/68; PULSE 88
--- NOTE | 2020-04-15 08:54 | Electrocardiogram Report ---
Test Reason : Blood Pressure : / mmHG Vent. Rate : 072 BPM Atrial Rate : 072 BPM P-R Int : 158 ms QRS Dur : 090 ms QT Int : 392 ms P-R-T Axes : 032 075 -04 degrees QTc Int : 429 ms Normal sinus rhythm ST elevation, consider early repolarization, pericarditis, or injury Abnormal QRS-T angle, consider primary T wave abnormality Abnormal ECG When compared with ECG of 13-APR-2020 06:24, T wave inversion now evident in Inferior leads Confirmed by Tha Bruce ([id number]) on 04/15/2020 8:54:45 AM Referred By: REFERRED SELF Confirmed By:Tha Bruce
--- NOTE | 2020-04-22 08:29 | Discharge Summary ---
Date of Service April 14, 2020 Admission HPI Per Admitting Provider The patient is a 24-year-old male with a past medical history including anxiety and depression, who presents as noted above. Principal Diagnosis suicide attempt Discharge Exam The patient is awake, alert and oriented 3, well developed and well nourished, normocephalic and atraumatic, lying in bed and in no acute distress. HEENT--PERRL, EOMI, mucous membranes and oropharynx dry. Neck--supple. No JVD. No bruits. Thyroid normal, trachea midline, no adenopathy. Heart--normal S1 and S2. No murmurs, rubs or gallops. Lungs--clear bilaterally, no respiratory distress, no accessory muscle use. Abdomen--normal bowel sounds and soft. Nontender. Nondistended, no hernias or masses, no organomegaly. Extremities--no cyanosis or clubbing. No edema. Dermatologic--normal skin turgor, normal color, no abnormal lymph nodes, no rash. Neurologic--cranial nerves II through XII grossly intact. Rheumatologic--normal range of motion. Psychiatric--normal affect. Discharge Data Allergies Allergy/AdvReac Type Severity Reaction Status Date / Time No Known Allergies Allergy Unverified 04/12/20 21:14 Consultations 04/12/20 22:37 ED Decision to Admit Stat 04/13/20 00:17 Consult Case Management - Discharge Planning Routine Consult Psychiatry Routine 04/13/20 00:48 Consult Behavioral Health Liaison Routine Hospital Course (1) Suicide attempt: Suicide attempt/anxiety/depression/overdose of trazodone/alcohol use- Admit to telemetry and monitor for arrhythmia. No signs of arrythmia. No QTC prolongation. Regular diet Hold fluoxetine and trazodone. One-to-one observation. Consult psychiatry, appreciate input. Ok for discharge to psych unit. (2) Overdose of trazodone: (3) Alcohol abuse: (4) Anxiety: (5) Depression: Total Time Total Time Spent Total Time Spent (In Minutes): 32 Total Time Includes: Examination of the Patient, Discharge Planning and Medication Reconciliation Discharge Plan Discharge Items Patient Disposition: Transfer Behavioral Health Fac Reason For Visit: INTENTIONAL TRAZODONE OVERDOSE Discharge Diagnosis: intentional trazodone overdose Activity: Resume your previous activity Non-emergency contact: Primary Care Provider Call non-emergency contact if: you have any medication questions Follow-up/Referrals: [facility] [Primary Care Provider] - Diet: Regular Addtl Attending Provider Instructions: being transferred to inpatient psych Pending Studies at Discharge: No Stand-Alone Forms: My [facility] Medications and DC Order Prescriptions: Discontinued trazodone 50 mg tablet 25 - 50 mg PO HS RF: 0 fluoxetine 10 mg capsule 10 mg PO DAILY RF: 0 fluoxetine 20 mg capsule 20 mg PO DAILY RF: 0 No Action fluoxetine 10 mg Capsule 30 mg PO QAM Qty: 1 RF: 0 Discharge Orders: Discharge Order (Routine); Ordered 04/14/20 Ordered By: Dann Aviles Admission Data Admit Date/Time: 04/12/20 22:52 Attending Provider: Dann Aviles Admit Provider: Lj Tran Primary Care Provider: [facility] Other Providers: Lj Tran ; Devora Javed Other Interventions: Discharge Summary Assessment (RN) Last Done: 04/14/20 21:31 PSY Interdisciplinary Discharge Planning Last Done: 04/13/20 11:55 Coding Level of Care Code D/C Day Management >30 mins Diagnoses Suicide attempt T14.91XA Overdose of trazodone T43.211A Alcohol abuse F10.10 Anxiety F41.9 Depression F32.9 Depression Type: unspecified Time Spent (min) 32
== END 2020-04-14 21:15 | DRG 918 ==
LOC: ED 20:56 → SUATTDRO 22:52 → 2E 22:52
DX: T43.212A Poisoning by selective serotonin and norepinephrine reuptake inhibitors, intentional self-harm, initial encounter; T43.226A Underdosing of selective serotonin reuptake inhibitors, initial encounter; Y90.3 Blood alcohol level of 60-79 mg/100 ml; Z91.128 Patient's intentional underdosing of medication regimen for other reason; F41.9 Anxiety disorder, unspecified; Z79.899 Other long term (current) drug therapy; F10.10 Alcohol abuse, uncomplicated; F32.9 Major depressive disorder, single episode, unspecified; Z91.5 Personal history of self-harm; G47.00 Insomnia, unspecified

== ENCOUNTER 2020-04-14 20:28 | Inpatient (IN) ==
[2020-04-14] MEDS ORDERED: BISMUTH SUBSALICYLATE LIQD 236 ML PO PRN (20:30)
[2020-04-14] MEDS ORDERED: MAGNESIUM HYDROXIDE SUSP 30 ML UDC PO PRN (20:30)
[2020-04-14] MEDS ORDERED: SODIUM CHLORIDE 0.65% NA SOLN 45 ML (OCEAN) PRN (20:30)
[2020-04-14] MEDS ORDERED: ALUMINUM/MAGNESIUM SUSP 30 ML UDC PO PRN (20:30)
[2020-04-14] MEDS ORDERED: ACETAMINOPHEN 325 MG TAB PO PRN (20:30)
[2020-04-14] MEDS ORDERED: hydrOXYzine HCl 25 MG TAB PO PRN ×2 (20:30)
[2020-04-14] MEDS ORDERED: INFLUENZA ADMINISTRATION CHARGE ONE (23:15)
[2020-04-14] MEDS ORDERED: INFLUENZA VIRUS QUAD VACCINE 0.5 ML SYR IM ONE (23:15)
--- NOTE | 2020-04-15 07:36 | History & Physical ---
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 Encourage him to explore triggers and pattern with respect to overdoses, as limited insight into why he repeatedly overdoses. Inpatient treatment is medically necessary due to the risk of suicide/self harm if discharged prematurely. (1) Overdose of trazodone: 04/15 - Patient has had 3-4 intentional overdoses, poor insight into triggers/reasons for his behavior. Explore and process in groups/therapy. - Continue inpatient treatment, coordinate with outpatient clinicians, both informed, send records. - Trazodone discontinued, as patient has overdosed on it 3-4 times now, and does not like it for sleep d/t am sedation. Family meeting with parents, recommend comprehensive safety plan including all medications locked and secured, no access to large amounts of pills, no alcohol. (2) Depression: 04/15 - Resume fluoxetine 20mg, as patient reports it has been effective and well tolerated. Has been on doses up to 40mg in the past. - Education provided re: diagnoses and treatment recommendations, including medications and therapy. - Encourage group attendance and participation, work on healthy coping skills and discharge safety plan. - Work on sleep hygiene, as playing video games late into the night, drinking excessive caffeine. Depression Type: unspecified Qualified Code(s): F32.9 - Major depressive disorder, single episode, unspecified Risk Factors Assessment Male: Yes : Yes Do You Have Access To A Gun?: No Health Problems: No Mental Health Diagnoses: Yes Substance Use Disorders: No Previous Attempt: Yes Previous Psychiatric Hospitalization: Yes Hopelessness: No Smoker: No Protective Factors Assessment : No Responsible for Young Children: No Employed: No Stable Relationships: Yes Supportive Family: Yes Good Rapport with Provider: Yes Psychiatric History Identifying Data JASON BOURNE is a 24-year-old M [employer] student from [place] who currently lives in [place] while attending school, has a history of depression, and was a dmitted on 04/14/20 21:15 on a 201 voluntary commitment for depression and an intentional trazodone overdose. Chief Complaint "It's like, I haven't been depressed in a very, I have my normal spells of depression, I've been off my meds for two weeks because I left them at home...". History of Present Illness Patient presented to the ER 04/12/2020 with his girlfriend after taking approximately 16-18 tablets of 50 mg trazodone intentionally, BAL was 78. Girlfriend completed a petitioning statement: "Avelino said this afternoon (04/12/20) that he failed to take his antidepressants for approximately 2 weeks. He has been showing signs of his depressive behaviors, such as sudden mood swings and anger for a little over a week. Last night (04/11/20) Avelino said that he accidently cut his hand while cooking and he liked the feeling. Arelis (04/12/20) he FaceTimed me (while I was on my way to his place) saying "he accidently" took approximately 16 trazodone pills and didn't wan to throw them up." In the ER, he said he was not happy with his life, and that he had not been taking his antidepressant for 2 weeks, after he left his medication at home in [place]. He said the overdose was impulsive and was unable to identify precipitating factors. He reported worsening mood over the past 2 weeks since going off his medications, and admitted to suicidal thoughts. He reported multiple previous suicide attempts and a least 1 previous hospitalization. Stressors include his father had an MO in December, mother is chronically ill, and academic stress. He was admitted medically for 2 days for monitoring for arrhythmia, received IV fluids and potassium, and all psychotropic medications were held. He had no QTC prolongation or arrhythmias, but did have some tachycardia, which resolved. On admission, CBC and CMP were normal, TSH 1.810, UA negative, UDS ethyl alcohol 78, COVID-19 screen negative. He was seen by the psychiatric consult service, and family and outpatient clinicians were contacted. His outpatient therapist stated she had recommended intensive outpatient treatment a couple of a months ago due to suicidal thoughts with a plan. His outpatient psychiatrist, Dr. Christensen, was also contacted and recommended inpatient treatment. Although the patient was not initially willing for inpatient psychiatric treatment, he ultimately agreed and signed in voluntarily on 04/13/2020 when medically stabilized for transfer to the [facility]. On my assessment, he states his mood had been stable for months, despite being off his fluoxetine for 2 weeks. He had gone out drinking with friends, and when he got home, took trazodone to go to sleep, but wasn't tired, so "took a bunch more." He admits that was "a problem," but can't explain why he took the OD. He state his girlfriend came over and "yelled at me, called my parents and called 911." He denies that he had suicidal thoughts, but can't explain why he took the overdose, or why he would have said he didn't want to throw them up. He denies that he has ever taken excessive doses to sleep in the past. He says he "didn't think anything of it" and did not think anything would happen when he was taking the overdose, "at the time it seemed fine." He says he now recognizes that "it wasn't fine." He states his mood has been "fine," but reports he is "a very stressed person to begin with," but denies feeling overwhelmed. 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 He got into [employer] school in [place] and starts in the fall. Sleep is chronically poor, states he often doesn't sleep enough, usually 4-6 hours a night, but doesn't like taking trazodone as he feels "really tired the next day." Denies changes in appetite or weight, problems with energy, concentration, and anhedonia. States he is doing well in school. Denies h/o zehra, psychosis, OCD, PTSD. States he is upset at his psychiatrist because he contacted him a month ago reporting increased anxiety and wanted to increase fluoxetine from 30mg to 40mg, and felt he was told it was "fine" and to keep taking 30mg daily. Past Psychiatric History Previous Psych History: Denies h/o SIB Previous overdoses: patient reports 3 previous overdoses in suicide attempts (ag e 20-20) - notes they were "very planned out, I had every intention of not being alive." Wrote suicide notes and took overdoses of trazodone in each incident - but notes overdose amounts were lower (around 300mg). Current Psychiatric Diagnosis: Depression Outpatient Services: Therapist: Zuleika Spivey in [facility] Psychiatrist: Dr. Christensen at [facility] Previous Psych Admissions: [facility] approximately 4 years ago Do You Have Access To A Gun?: No History of Previous Suicide Attempt: Yes (most recent overdose was 2 years ago) Describe Attempts in the Past: Several previous overdoses, only sought treatment for 1. Past Medication Trials: Multiple past medication trials were ineffective, including venlafaxine XR, sertraline, bupropion, buspirone, and others he cannot recall the names of. Currently prescribed fluoxetine 30mg, stopped it approximately 2 weeks ago after he left it at home. Has been on doses up to 40mg in the past. Allergies Allergy/AdvReac Type Severity Reaction Status Date / Time No Known Allergies Allergy Unverified 04/12/20 21:14 Home Medications Home Medications Medication Instructions Recorded Confirmed Type fluoxetine 20 mg PO DAILY 04/15/20 04/15/20 History Family History Family History of: Depression, Alcoholism/Drug Abuse (Grandfather) and Suicide Attempts (Cousin) Alcohol History Hx of Alcohol Use Over the Past 12 Months: Yes AUDIT Total Score: 7 Reports drinking once weekly, 2-7 drinks per episode. Smoking Use Have You Smoked or Used Tobacco Products in the Last 30 Days: No Smoking Status: Never smoker Substance History Hx of Prescription Med Misuse Over the Past 12 Months: No Hx of Over the Counter Med Misuse Over the Past 12 Months: No Hx of Inhalent Misuse Over the Past 12 Months: No Hx of Organic Substance Use Over the Past 12 Months: No Hx of Illegal Substances/Street Drug Use Over Past 12 Months: No Problems as a Result of Past Substance Use: None Identified Personal History Living Arrangements: Apartment Living Arrangements Comments: In [place], parents live in [place] Childhood: 3 brothers (older) and 1 younger sister (adopted) Highest Grade Completed: High School Graduate Employment Status: Student ([employer] student, 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) Marital Status: Single Number Of Children: 0 Beliefs That Will Affect Care: Sabianist Current Legal Problems: No Hx Traumatic Life Events: No Patient History Medical History Anxiety Depression No pertinent family history Suicide attempt Surgical History No pertinent past surgical history Social History Smoking Status: Never smoker Second Hand Exposure: No; Hx Alcohol Use: Yes Alcohol type: other Hx Substance Use: No Preferred Language: Yi Communication Ability: Effective Hand Spring Former Required: No Beliefs That Will Affect Care: Sabianist Sabianist Beliefs: Would like to attend [employer] via online stream once per weekend. Current Living Situation: Alone Feels Safe at Home: Yes Assistive Devices: Glasses Physical Exam Psychiatric: Orientation: alert and cooperative Apperance: appropriately dressed, appropriately groomed and appeared stated age Eye Contact: good eye contact Motor Behavior: steady gait and station and no abnormal motor movements Speech: normal rate/rhythm/volume of speech Affect: euthymic affect and mood congruent with affect "good" Thought Process: goal directed thought process Thought Content: reality based without delusions Suicidal Thoughts: denies suicidal thoughts Homicidal Thoughts: denies homicidal thoughts Hallucinations: no auditory hallucinations Cognition: recent memory grossly intact, attention grossly intact and language grossly intact Estimated Intelligence: consistent with education level Insight: + limited insight Judgement: + fair judgement Vital Signs (Past 24 Hours): Last Vital Signs Temp 36.4 C L 04/15/20 06:46 Pulse 85 04/15/20 06:48 Resp 16 04/15/20 06:46 BP 108/62 04/15/20 06:48 Exam Statement: A physical exam was performed on the medical floor prior to admission to the unit by Dr. Wood. I accept that physical as correct/medical clearance for the inpatient physical exam. Results & Data ([facility]) Current Inpatient Medications Current Inpatient Medications: Current Inpatient Medications Acetaminophen (Acetaminophen 325 Mg Tab) 650 mg PO Q4H PRN PRN Reason: Headache or Minor Fever Stop: 05/14/20 20:29 Al Hydrox/Mg Hydrox/Simethicone (Aluminum/Magnesium Susp 30 Ml Udc) 30 ml PO Q4H PRN PRN Reason: GI Upset Stop: 05/14/20 20:29 Bismuth Subsalicylate (Bismuth Subsalicylate Liqd 236 Ml) 15 ml PO PRN PRN PRN Reason: Loose Stool Stop: 05/14/20 20:29 Hydroxyzine HCl (Hydroxyzine Hcl 25 Mg Tab) 50 mg PO HSZ PRN PRN Reason: Insomnia Stop: 05/14/20 20:29 Hydroxyzine HCl (Hydroxyzine Hcl 25 Mg Tab) 25 mg PO Q4H PRN PRN Reason: Anxiety Stop: 05/14/20 20:29 Magnesium Hydroxide (Magnesium Hydroxide Susp 30 Ml Udc) 30 ml PO DAILY PRN PRN Reason: Constipation Stop: 05/14/20 20:29 Sodium Chloride (Sodium Chloride 0.65% Na Soln 45 Ml (Escondida)) 1 - 2 sprays NA PRN PRN PRN Reason: Nasal Dryness/Congestion Stop: 05/14/20 20:29
[2020-04-15] MEDS: FLUoxetine HCL 20 MG CAP PO SCH (11:24)
[2020-04-16] MEDS: FLUoxetine HCL 20 MG CAP PO SCH (09:31)
--- NOTE | 2020-04-16 09:37 | Psychiatric Progress Note ---
Date of Service April 16, 2020 Impression / Recommendations Impression 24 y/o [employer] student from [place] with a history of depression, binge drinking, and multiple intentional overdoses who is admitted after a trazodone overdose. Encourage him to explore triggers and pattern with respect to overdoses, as limited insight into why he repeatedly overdoses. Pt is admittedly frustrated by hospitalization. He simultaneously has been supportive of peers, active in groups, and demonstrating bright affect when in groups - but also verbalizing significant frustration and negativity toward staff and his treatment. There is an escalating suspicion for borderline personality traits based on more recent behavior displayed. Pt unable to tolerate conversation regarding this diagnosis during this hospitalizatino. Inpatient treatment is medically necessary due to the risk of suicide/self harm if discharged prematurely. (1) Overdose of trazodone: 04/15 - Patient has had 3-4 intentional overdoses, poor insight into triggers/reasons for his behavior. Explore and process in groups/therapy. - Continue inpatient treatment, coordinate with outpatient clinicians, both informed, send records. - Trazodone discontinued, as patient has overdosed on it 3-4 times now, and does not like it for sleep d/t am sedation. Family meeting with parents, recommend comprehensive safety plan including all medications locked and secured, no access to large amounts of pills, no alcohol. 04/16 - Pt continues to tolerate decision for trazodone to be discontinued. - Family meeting today with parents. Pt primarily focused on discharge; however, they were able to discuss plan for parental supervision and participation with safety planning. Medications will be secured, no guns in home, and parents will distribute medications when appropriate. - Pt denying SI (2) Depression: 04/15 - Resume fluoxetine 20mg, as patient reports it has been effective and well tolerated. Has been on doses up to 40mg in the past. - Education provided re: diagnoses and treatment recommendations, including medications and therapy. - Encourage group attendance and participation, work on healthy coping skills and discharge safety plan. - Work on sleep hygiene, as playing video games late into the night, drinking excessive caffeine. 04/16 - Home dose of fluoxetine reportedly 30mg - will titrate to this dose for tomorrow morning - Continued education regarding diagnosis and expected benefits of inpatient psychiatric treatment. Pt was encouraged to continue attending groups, despite frustration with length of stay, as it is felt there are still benefits to be gained from further hospitalization - Pt was offered 72-hour notice and declined. He mentioned transfer requested - this was offered and also declined by the patient. - Pt did proactively secure outpatient appointments with his psychiatric providers - He is requesting referral to partial hospitalization programs, requesting that this may reduce his length of stay - we will attempt to reach out to requested facilities, but ability to accommodate this was not guaranteed. Risk Factors Assessment Male: Yes : Yes Do You Have Access To A Gun?: No Health Problems: No Mental Health Diagnoses: Yes Substance Use Disorders: No Previous Attempt: Yes Previous Psychiatric Hospitalization: Yes Hopelessness: No Smoker: No Protective Factors Assessment : No Responsible for Young Children: No Employed: No Stable Relationships: Yes Supportive Family: Yes Good Rapport with Provider: Yes Interval History Identifying Information JASON BOURNE is a 24-year-old [employer] student from [place] who currently lives in [place] while attending school, has a history of depression, and was admitted on 04/14/20 21:15 on a 201 voluntary commitment for depression and an intentional trazodone overdose. Chief Complaint "Um, so I'll be honest, I'm pretty annoyed." Review of Systems Notes Constitutional: denied Cardiovascular: denied Respiratory: denied Gastrointestinal: denied Neurological: denied Psychiatric: denies symptoms other than stated above Total of at least 10 systems reviewed, pertinent positives as above and in HPI. Sleep Information Total Hours of Sleep: 6.5 Meal Information Percent Meal Consumed - Breakfast: 75 Percent Meal Consumed - Lunch: 100 Percent Meal Consumed - Dinner: 100 Subjective Subjective Patient was seen & assessed and interval progress reviewed with treatment team. Staff report the patient has been out of his room and engaged with peers. He h as been participating in group programming. Pt rated his mood a 10/10 and "happy" last evening, with meeting with parents scheduled for this morning. After learning that treatment team was recommending a discharge date of Sunday, the patient rated his mood a 7/10 and became more irritable with staff. He participated in his family meeting, but was reportedly only focused on negotiating an even sooner discharge than was recommended. This provider met with the patient to assess progress since admission and address some of the concerns he verbalized to staff regarding his length of stay. Pt did admit that he is feeling frustrated and "annoyed." He spends a good portion of our conversation advocating for discharge tomorrow, stating that his mood is worse and that he is not comfortable here. Pt does openly express that he is frustrated with his perception that staff expects him to be depressed because he overdosed. He denies depressive symptoms and states that he was not suicidal when he overdosed on trazodone. Attempts were made to redirect patient to focus on the legitimate safety concern related to any kind of overdose, regardless of intent. Pt seems to have difficulty appreciating staff concern for this behavior and desire to work with him on safety planning that would help to prevent similar situations in the future. Positively, the patient does state that he has been thinking about his safety plan. Some aspects include: returning home with parent supervision, parents securing medications, continuing to work with his outpatient providers, and utilizing healthy coping skills. Pt is very negative when speaking about his treatment experience thus far and states he is not planning to get anything more from this experience. Pt was challenged to utilize the remainder of his time on the unit to develop additional coping strategies and reflect on areas where he may benefit from some growth and stepping out of his comfort zone. Reflective listening was utilized by this provider for the duration of our lengthy conversation, and attempts were made to work with the patient to recognize and mitigate some of his frustrations. Pt at one point suggested transfer to another facility. This was offered to him, but patient was also presented with the reality that a transfer would likely not result in a shortened length of stay overall. Pt suggested a willingness to participate in a partial hospitalization program if sooner discharge would be considered. This provider repeatedly stated that she could not guarantee this arrangement could be made, but that she would inform social work of this request and we would attempt to accommodate if able. Pt is denying SI and maintains that he is not depressed. At one point, patient did request to know his diagnosis, stating depression should not be listed. Education was provided to the patient that despite efficacy of fluoxetine and his reports of no depressive symptoms, that depression remains an appropriate clinical diagnosis. Pt denied other needs and was, as requested, given information about procedure to request his medical records. Physical Exam Psychiatric Orientation: alert, oriented x 3 and + guarded (argumentative, focused on discharge) Eye Contact: good eye contact Motor Behavior: steady gait and station and no abnormal motor movements Speech: normal rate/rhythm/volume of speech (irritable tone, argumentative ) Affect: + irritable affect Mood: + anxious mood (reports this is specifically related to continued confinement); no depressed mood Thought Process: goal directed thought process and + perseveration (on shortened discharge timeline) Thought Content: + cognitive distortions Suicidal Thoughts: denies suicidal thoughts Homicidal Thoughts: denies homicidal thoughts Hallucinations: no auditory hallucinations and no visual hallucinations Cognition: attention grossly intact and language grossly intact Estimated Intelligence: consistent with education level Insight: + poor insight Judgement: + poor judgement Vital Signs (Past 24 Hours) Last Vital Signs Temp 36.6 C 04/16/20 06:42 Pulse 76 04/16/20 06:43 Resp 16 04/16/20 06:42 BP 119/73 04/16/20 06:43 Results & Data ([facility]) Current Inpatient Medications Current Inpatient Medications: Current Inpatient Medications Acetaminophen (Acetaminophen 325 Mg Tab) 650 mg PO Q4H PRN PRN Reason: Headache or Minor Fever Stop: 05/14/20 20:29 Al Hydrox/Mg Hydrox/Simethicone (Aluminum/Magnesium Susp 30 Ml Udc) 30 ml PO Q4H PRN PRN Reason: GI Upset Stop: 05/14/20 20:29 Bismuth Subsalicylate (Bismuth Subsalicylate Liqd 236 Ml) 15 ml PO PRN PRN PRN Reason: Loose Stool Stop: 05/14/20 20:29 Fluoxetine HCl (Fluoxetine Hcl 20 Mg Cap) 20 mg PO QAM IKE Stop: 05/15/20 10:44 Last Admin: 04/16/20 09:31 Dose: 20 mg Documented by: Hydroxyzine HCl (Hydroxyzine Hcl 25 Mg Tab) 50 mg PO HSZ PRN PRN Reason: Insomnia Stop: 05/14/20 20:29 Hydroxyzine HCl (Hydroxyzine Hcl 25 Mg Tab) 25 mg PO Q4H PRN PRN Reason: Anxiety Stop: 05/14/20 20:29 Magnesium Hydroxide (Magnesium Hydroxide Susp 30 Ml Udc) 30 ml PO DAILY PRN PRN Reason: Constipation Stop: 05/14/20 20:29 Sodium Chloride (Sodium Chloride 0.65% Na Soln 45 Ml ([place])) 1 - 2 sprays NA PRN PRN PRN Reason: Nasal Dryness/Congestion Stop: 05/14/20 20:29 Mental Health & Subst Abuse Tx Psychiatrist Name of Psychiatrist: Dr Christensen Date of Appointment with Psychiatrist: 04/23/20 Time of Appointment with Psychiatrist: 2:00pm Therapist Name of Therapist: Zuleika Spivey Date of Therapist Appointment: 04/19/20 Time of Therapist Appointment: 1:00 Refined Syrup Operator Name of Refined Syrup Operator: None Post Discharge Appointments Primary Care Physician Name Of Family Doctor: [facility] Contact Information Discharge Discharge [address]: [address] [place] [address] [place] [address] (1) Depression Depression Type: unspecified Qualified Code(s): F32.9 - Major depressive disorder, single episode, unspecified
--- NOTE | 2020-04-16 14:30 | Communication Note ---
Date of Service: April 16, 2020 Outpatient records from [facility] - Summarized Below: Diagnoses: - Major depressive disorder, recurrent, mild - Insomnia - Attention deficit hyperactivity disorder, predominantly hyperactive impulsive type, in remission - Anxiety disorder, unspecified - Cluster B personality traits Past Medication Trials: - Fluoxetine - Buspirone - Trazodone - Sertraline (worsening mood) - Escitalopram - Venlafaxine (ineffective) - Mirtazapine (irritability) - Bupropion XL - Hydroxyzine - Propranolol (prn for anxiety) - Atomoxetine (weight gain) - Adderall - Concerta - Ritalin - Daytrana patch - Metadate CD Records indicate the patient had been followed at [facility] since 01/2016, with primary diagnoses of MDD and ADHD ("in remission"). Previous hospitalization at [facility] in 10/2015 with partial hospitalization in [place] following. History of self-harm behaviors by cutting. Pt did indicate some sexual side effects with fluoxetine, but stated this was not significantly influencing him. On 05/23/2019 buspirone was initiated to augment fluoxetine 40mg in attempts to target anxiety. Trazodone continued for sleep. Pt reported attempts to schedule with an outpatient therapist. Pt did report an episode of cutting Thanks2018 and reported transient passive wishes on a regular basis. Denied active SI, plan, or intent. There was reportedly a gap in treatment from 05/2019 to 01/2020. Pt had discontinued fluoxetine in that time and was agreeable with resuming the medication with "goal of increasing to a higher dose." Concern was mentioned for cluster B personality traits. Suicidality is reported to be chronic and re mained unchanged with no additional safety concerns since 05/2019 visit. Pt was set up with Zuleika Jaffe at [facility]. Pt did admit to worsening mood in the setting of COVID-19 and increased social isolation. Pt had identified some episodes of SI with plan of suffocation, but denied identifiable stressor. Pt did admit to increased academic stress. He reported consideration of participating in a day program. Pt had follow-up appointment in 02/2020, and fluoxetine was increased to 30mg daily. Pt reported depressive symptoms have been well-managed. Pt reported he was doing well in school. Pt denied both active and passive SI.
[2020-04-17] MEDS: FLUoxetine HCL 10 MG CAP PO SCH (08:33)
--- NOTE | 2020-04-17 08:56 | Psychiatric Progress Note ---
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 Encourage him to explore triggers and pattern with respect to overdoses, as limited insight into why he repeatedly overdoses. Pt had been verbalizing frustrated about his hospitalization and was minimizing and not forthcoming with information. He simultaneously had been supportive of peers, active in groups, and demonstrating bright affect when in groups - but also verbalizing significant frustration and negativity toward staff and his treatment. He did eventually open up to staff and admitted that his overdose was, in fact, a suicide attempt. This was processed 1:1 with our counselor and he has been more cooperative and open since that time. There is an escalating suspicion for borderline and narcissistic personality traits based on more recent behavior displayed. Pt also admitted to a remote history of eating disorder behavior. Inpatient treatment is medically necessary due to the risk of suicide/self harm if discharged prematurely. (1) Overdose of trazodone: 04/15 - Patient has had 3-4 intentional overdoses, poor insight into triggers/reasons for his behavior. Explore and process in groups/therapy. - Continue inpatient treatment, coordinate with outpatient clinicians, both informed, send records. - Trazodone discontinued, as patient has overdosed on it 3-4 times now, and does not like it for sleep d/t am sedation. Family meeting with parents, recommend comprehensive safety plan including all medications locked and secured, no access to large amounts of pills, no alcohol. 04/16 - Pt continues to tolerate decision for trazodone to be discontinued. - Family meeting today with parents. Pt primarily focused on discharge; however, they were able to discuss plan for parental supervision and participation with safety planning. Medications will be secured, no guns in home, and parents will distribute medications when appropriate. - Pt denying SI 04/17 - Pt did open up to staff last evening, admitting that his overdose was, in fact, as suicide attempt - We discussed patient's reported confusion related to his episode of suicidality, as he maintains that his mood has been stable for the past 2 years and he is confused that he has not been feeling particularly depressed. (2) Depression: 04/15 - Resume fluoxetine 20mg, as patient reports it has been effective and well tolerated. Has been on doses up to 40mg in the past. - Education provided re: diagnoses and treatment recommendations, including medications and therapy. - Encourage group attendance and participation, work on healthy coping skills and discharge safety plan. - Work on sleep hygiene, as playing video games late into the night, drinking excessive caffeine. 04/16 - Home dose of fluoxetine reportedly 30mg - will titrate to this dose for tomorrow morning - Continued education regarding diagnosis and expected benefits of inpatient psychiatric treatment. Pt was encouraged to continue attending groups, despite frustration with length of stay, as it is felt there are still benefits to be gained from further hospitalization - Pt was offered 72-hour notice and declined. He mentioned transfer requested - this was offered and also declined by the patient. - Pt did proactively secure outpatient appointments with his psychiatric providers - He is requesting referral to partial hospitalization programs, requesting that this may reduce his length of stay - we will attempt to reach out to requested facilities, but ability to accommodate this was not guaranteed. 04/17 - Continue fluoxetine 30mg daily - patient denied feeling as though further ti tration would be necessary at this time - Pt was commended for opening up with staff about the events leading to his overdose, and admitting recurrence of SI. He was able to identify some factors that may have contributed, specifically alcohol use. - Pt continues to deny active SI and reports willingness to continue to engage in treatment. We discussed following through with anticipated discharge tomorrow to allow the patient additional time to process in groups Risk Factors Assessment Male: Yes : Yes Do You Have Access To A Gun?: No Health Problems: No Mental Health Diagnoses: Yes Substance Use Disorders: No Previous Attempt: Yes Previous Psychiatric Hospitalization: Yes Hopelessness: No Smoker: No Protective Factors Assessment : No Responsible for Young Children: No Employed: No Stable Relationships: Yes Supportive Family: Yes Good Rapport with Provider: Yes Interval History Identifying Information JASON BOURNE is a 24-year-old [employer] student from [place] who currently lives in [place] while attending school, has a history of depression, and was admitted on 04/14/20 21:15 on a 201 voluntary commitment for depression and an intentional trazodone overdose. Chief Complaint "Um, I'm doing better." Review of Systems Notes Constitutional: denied Cardiovascular: denied Respiratory: denied Gastrointestinal: denied Neurological: denied Psychiatric: denies symptoms other than stated above Total of at least 10 systems reviewed, pertinent positives as above and in HPI. Sleep Information Total Hours of Sleep: 6 Meal Information Percent Meal Consumed - Breakfast: 0 Percent Meal Consumed - Lunch: 100 Percent Meal Consumed - Dinner: 100 Subjective Subjective Patient was seen & assessed and interval progress reviewed with nursing and social work. Staff report the patient has been participating in group programming. He was reportedly irritable and 'passive aggressive' for much of the day yesterday, admittedly upset about his length of stay. Pt did turn a corner in the evening and was able to participate in a 1:1 with staff, where he finally disclosed that his overdose was, in fact, a suicide attempt. Pt did admit that he was under the influence of alcohol, but that he had developed suicidal thoughts and did mean to end his life with the trazodone overdose. During his admission, he has consistently denied recurrence of SI. Pt was seen today to assess progress since admission. Pt states "I'm doing better." He shares that he feels somewhat uncoordinated and "off balance" since the overdose, but does believe this is improving. Pt also apologizes to this provider for our conversation yesterday. This provider accepted apology and recognized that the patient was frustrated. Pt discloses again that he was experiencing SI when he took the overdose, but opens up about his confusion surrounding this. Pt states "It's weird, because I really don't feel that I've been depressed, I've been like the most stable I've been for the past two years." Pt continues to deny acute stressor leading to his SI/overdose, but does provide a timeline of the last two years. He reports beginning a new relationship with a girl he finds to be very supportive. He also has been engaged in treatment and attempting to learn more about his depression. He states the health issues with his parents were difficult, but he felt he maintained stability of mood despite this. He does admit a significant generalized stressor has been COVID-19, but admits he thought he was handling this as well. Pt also provides some additional insight into is history of depression, feeling it dates back more than the 6 years he initially reported. Pt states that even as a child he would write notes to his mother, apologizing and reporting guilt for various seemingly trivial incidents. He shares that guilt has been a driving force behind numerous decisions - sharing a particular story where he had been saving his money to swim with dolphins during a scheduled family cruise, but at the last minute donated the money to a christie that would dig wells for underserved communities because "I felt guilty that I just wanted to have fun while other people were living with far less than me." Pt states that there are a few other moments that have been significant for him, one in particular where it was suggested he may "get fat" from drinking specialty coffee orders - which triggered an eating disorder. Pt admits to remote history of restrictive eating and purging (inducing vomiting) - which he also utilized to get out of school, which was particularly triggering as well. Pt admits that he still struggles to understand some of these past behaviors, but admits he feels he has come a long way. We discussed utilizing this admission as means to push him even further into understanding his diagnoses and utilizing effective coping skills. We also discussed the importance of a safety plan, specifically as patient is "scared" by the sudden onset of SI and impulsive overdose. Pt was encouraged to work on his written safety plan in preparation for discharge planning. He continues to be future oriented and motivated to continue outpatient treatment. He is still hoping to be able to attend his outpatient therapy appointment Sunday afternoon. Physical Exam Psychiatric Orientation: alert, oriented x 3 and cooperative Apperance: appropriately dressed, appropriately groomed and appeared stated age Eye Contact: good eye contact Motor Behavior: steady gait and station and no abnormal motor movements Speech: normal rate/rhythm/volume of speech (much more pleasant tone) Affect: euthymic affect Mood: no depressed mood ("I'm feeling better now that I've been more honest") Thought Process: goal directed thought process, clear/coherent thought process and thought association intact Thought Content: reality based without delusions and + guilt (reports feeling of guilt are pervasive throughout his past/present); no hopelessness and no worthlessness Suicidal Thoughts: denies suicidal thoughts, denies suicidal plan and denies suicidal intent Homicidal Thoughts: denies homicidal thoughts Hallucinations: no auditory hallucinations and no visual hallucinations Cognition: attention grossly intact and language grossly intact Estimated Intelligence: consistent with education level Insight: + fair insight Judgement: + fair judgement Vital Signs (Past 24 Hours) Last Vital Signs Temp 36.4 C L 04/17/20 06:41 Pulse 72 04/17/20 06:41 Resp 18 04/17/20 06:41 BP 124/82 04/17/20 06:41 Results & Data ([facility]) Current Inpatient Medications Current Inpatient Medications: Current Inpatient Medications Acetaminophen (Acetaminophen 325 Mg Tab) 650 mg PO Q4H PRN PRN Reason: Headache or Minor Fever Stop: 05/14/20 20:29 Al Hydrox/Mg Hydrox/Simethicone (Aluminum/Magnesium Susp 30 Ml Udc) 30 ml PO Q4H PRN PRN Reason: GI Upset Stop: 05/14/20 20:29 Bismuth Subsalicylate (Bismuth Subsalicylate Liqd 236 Ml) 15 ml PO PRN PRN PRN Reason: Loose Stool Stop: 05/14/20 20:29 Fluoxetine HCl (Fluoxetine Hcl 10 Mg Cap) 30 mg PO QAM IKE Stop: 05/17/20 08:59 Last Admin: 04/17/20 08:33 Dose: 30 mg Documented by: Hydroxyzine HCl (Hydroxyzine Hcl 25 Mg Tab) 50 mg PO HSZ PRN PRN Reason: Insomnia Stop: 05/14/20 20:29 Hydroxyzine HCl (Hydroxyzine Hcl 25 Mg Tab) 25 mg PO Q4H PRN PRN Reason: Anxiety Stop: 05/14/20 20:29 Magnesium Hydroxide (Magnesium Hydroxide Susp 30 Ml Udc) 30 ml PO DAILY PRN PRN Reason: Constipation Stop: 05/14/20 20:29 Sodium Chloride (Sodium Chloride 0.65% Na Soln 45 Ml ([place])) 1 - 2 sprays NA PRN PRN PRN Reason: Nasal Dryness/Congestion Stop: 05/14/20 20:29 Mental Health & Subst Abuse Tx Psychiatrist Name of Psychiatrist: Dr Christensen Date of Appointment with Psychiatrist: 04/23/20 Time of Appointment with Psychiatrist: 2:00pm Therapist Name of Therapist: Zuleika Spivey Date of Therapist Appointment: 04/19/20 Time of Therapist Appointment: 1:00 [employer] Name of [employer] Farmworker: None Post Discharge Appointments Primary Care Physician Name Of Family Doctor: [facility] Contact Information Discharge Discharge Address: [address] [place] [address] [place] [address] (1) Depression Depression Type: unspecified Qualified Code(s): F32.9 - Major depressive disorder, single episode, unspecified
--- NOTE | 2020-04-18 08:06 | Discharge Summary ---
Date of Service April 18, 2020 History of Present Illness Patient presented to the ER 04/12/2020 with his girlfriend after taking approximately 16-18 tablets of 50 mg trazodone intentionally, BAL was 78. Girlfriend completed a petitioning statement: "Avelino said this afternoon (04/12/20) that he failed to take his antidepressants for approximately 2 weeks. He has been showing signs of his depressive behaviors, such as sudden mood swings and anger for a little over a week. Last night (04/11/20) Avelino said that he accidently cut his hand while cooking and he liked the feeling. Tonight (04/12/20) he FaceTimed me (while I was on my way to his place) saying "he accidently" took approximately 16 trazodone pills and didn't wan to throw them up." In the ER, he said he was not happy with his life, and that he had not been taking his antidepressant for 2 weeks, after he left his medication at home in [place]. He said the overdose was impulsive and was unable to identify precipitating factors. He reported worsening mood over the past 2 weeks since going off his medications, and admitted to suicidal thoughts. He reported multiple previous suicide attempts and a least 1 previous hospitalization. Stressors include his father had an ND in December, mother is chronically ill, and academic stress. He was admitted medically for 2 days for monitoring for arrhythmia, received IV fluids and potassium, and all psychotropic medications were held. He had no QTC prolongation or arrhythmias, but did have some tachycardia, which resolved. On admission, CBC and CMP were normal, TSH 1.810, UA negative, UDS ethyl alcohol 78, COVID-19 screen negative. He was seen by the psychiatric consult service, and family and outpatient clinicians were contacted. His outpatient therapist stated she had recommended intensive outpatient treatment a couple of a months ago due to suicidal thoughts with a plan. His outpatient psychiatrist, Dr. Christensen, was also contacted and recommended inpatient treatment. Although the patient was not initially willing for inpatient psychiatric treatment, he ultimately agreed and signed in voluntarily on 04/13/2020 when medically stabilized for transfer to the [facility]. On my assessment, he states his mood had been stable for months, despite being off his fluoxetine for 2 weeks. He had gone out drinking with friends, and when he got home, took trazodone to go to sleep, but wasn't tired, so "took a bunch more." He admits that was "a problem," but can't explain why he took the OD. He state his girlfriend came over and "yelled at me, called my parents and called 911." He denies that he had suicidal thoughts, but can't explain why he took the overdose, or why he would have said he didn't want to throw them up. He denies that he has ever taken excessive doses to sleep in the past. He says he "didn't think anything of it" and did not think anything would happen when he was taking the overdose, "at the time it seemed fine." He says he now recognizes that "it wasn't fine." He states his mood has been "fine," but reports he is "a very stressed person to begin with," but denies feeling overwhelmed. He is taking 15 credits and works at his biology internship 3 days a week. He got into [employer] school in [place] and starts in the fall. Sleep is chronically poor, states he often doesn't sleep enough, usually 4-6 hours a night, but doesn't like taking trazodone as he feels "really tired the next day." Denies changes in appetite or weight, problems with energy, concentration, and anhedonia. States he is doing well in school. Denies h/o zehra, psychosis, OCD, PTSD. States he is upset at his psychiatrist because he contacted him a month ago reporting increased anxiety and wanted to increase fluoxetine from 30mg to 40mg, and felt he was told it was "fine" and to keep taking 30mg daily. Physical Exam Psychiatric Orientation: alert, oriented x 3 and cooperative Apperance: appropriately dressed, appropriately groomed and appeared stated age Eye Contact: good eye contact Motor Behavior: steady gait and station and no abnormal motor movements Speech: normal rate/rhythm/volume of speech Affect: euthymic affect and mood congruent with affect Mood: no depressed mood ("I think I've been doing a lot better" ) Thought Process: goal directed thought process, clear/coherent thought process and thought association intact Thought Content: + cognitive distortions (continued distortions consistent with Cluster B personality traits ) and reality based without delusions; no hopelessness and no worthlessness Suicidal Thoughts: denies suicidal thoughts, denies suicidal plan and denies suicidal intent Homicidal Thoughts: denies homicidal thoughts Hallucinations: no auditory hallucinations and no visual hallucinations Cognition: attention grossly intact and language grossly intact Estimated Intelligence: consistent with education level Insight: + fair insight Judgement: + fair judgement Vital Signs (Past 24 Hours) Last Vital Signs Temp 36.4 C L 04/18/20 06:29 Pulse 76 04/18/20 06:29 Resp 17 04/18/20 06:29 BP 136/71 04/18/20 06:29 Principal Diagnosis - Major depressive disorder, recurrent, moderate, without psychotic features - Anxiety disorder, unspecified - Escalating concern for Cluster B personality traits - 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 Pt was admitted voluntarily for inpatient psychiatric on 04/14/2020 after an intentional trazodone overdose. This admission followed a medical admission from 04/12/2020 - 04/14/2020 to ensure medical clearance after overdose. Early in his treatment, patient consistently denied that the overdose was a suicide attempt, but rather an impulsive decision made in the context of alcohol ingestion. Pt was encouraged to explore triggers and pattern with respect to overdoses, as it appeared he had limited insight into why he repeatedly overdoses. The day after his admission, the patient had been verbalizing frustration about his hospitalization and was minimizing and not forthcoming with information. He simultaneously had been supportive of peers, active in groups, and demonstrating bright affect when in groups - but also verbalizing significant frustration and negativity toward staff and his treatment. This behavior led to escalating suspicion for borderline and narcissistic personality traits, diagnoses that were also suggested when reviewing outpatient psychiatric records. He did eventually open up to staff and admitted that his overdose was, in fact, a suicide attempt. This was processed 1:1 with our counselor and he had been more cooperative after that time. Pt was less fixated on discharge and did participate more openly with group programming, with a reported focus of "learning to forgive and accept myself." Pt also admitted to a remote history of eating disorder behavior, no evidence of concerning behaviors during admission. Outpatient psychiatric appointments were confirmed and patient did agree to a family meeting with his mother, who supported safety planning by confirming no weapons in the home and offering to secure medications and dispense appropriately. Pt reported he will return home with his parents to [place]. Based on review of patient's case and their current presentation, risk of harm to self or others is no longer perceived to be acute. Management of symptoms on an outpatient basis seems the most appropriate and least restrictive setting. Pt seems appropriate for d ischarge with recommendation for consistent follow-up with outpatient psychiatric prescriber and therapist. Pt verbalized understanding of discharge plan reviewed and is agreeable with plan to be discharged home with parents today. Day of Discharge Assessment Patient's case was reviewed and discussed during morning report with nursing and social work. Staff report the patient has been cooperative and has been opening up more in group. He reported being grateful that he opened up about the overdose being a suicide attempt, reportedly stating that if he hadn't been honest with himself in this setting, he likely would have continued to be dishonest about this event. Pt was seen today to assess readiness for discharge. Dr. Javed, supervising psychiatrist for weekend rounding joined session via Zoom with patient's permission. Pt reported feeling his time here has been beneficial. He states he had recently been discussing with her peers the desire to work toward forgiveness and "learning to accept myself." Pt does seem bright and more optimistic. Pt denied concerns related to medications and states he feels comfortable continuing his previous dose of fluoxetine 30mg. Pt declines new prescription, stating he has refills available. He denies continued SI and reports feeling safe to be discharged today. He is able to review aspects of his written safety plan and reported feeling as though he had met his treatment goals. Pt denies other needs or concerns prior to discharge - transportation back to [place] to be provided by parents. ROS: Constitutional: denied Cardiovascular: denied Respiratory: denied Gastrointestinal: denied Neurological: denied Psychiatric: denies symptoms other than stated above Total of at least 10 systems reviewed, pertinent positives as above and in HPI. Transition of Care Transition Of Care Record: was reviewed with the patient Advance Directives Advance Directives Information Provided: Yes Advance Directives: No Mental Health Advance Directive: No Advance Directives on File: No Living Will: No Power of Manager Strategic: No Advance Directives Reason:: Declines as Mental Health Visit. Risk Factors Assessment Presenting risk factors reviewed on discharge. Precipitating stressors mitigated by: admission for inpatient psychiatric observation and treatment, re-initiation of medications to target presenting symptoms, attendance of therapeutic treatment groups, development of healthy and effective coping strategies, involvement of outpatient supports, completion of a safety plan, confirmation of extra medications being secured, confirmation of guns and weapons being secured, discussion regarding substance abuse and effects on mental health diagnoses, and education on diagnoses. Pt has demonstrated improvement in condition with regard to improvement in mood, willingness to discuss suicidal ideation, development of a safety plan, involvement of parents in family meeting, and confirmation of appointments with outpatient psychiatric providers. At this time, patient is requesting discharge and is no longer considered to be at acute risk of harm to himself or others. Pt will be discharged with recommendation for ongoing outpatient psychiatric treatment. Pt is at increased risk of harm to self or others when compared to the general population do to numerous past overdose attempts, low frustration tolerance, and limited willingness to fully process his mental health diagnoses - which likely includes a personality component. Male: Yes : Yes Do You Have Access To A Gun?: No Health Problems: No Mental Health Diagnoses: Yes Substance Use Disorders: No Previous Attempt: Yes Previous Psychiatric Hospitalization: Yes Hopelessness: No Smoker: No Protective Factors Assessment : No Responsible for Young Children: No Employed: No Stable Relationships: Yes Supportive Family: Yes Good Rapport with Provider: Yes Tobacco Cessation at Discharge Tobacco Cessation Medication Prescribed at Discharge: Not Applicable/Non-Smoker Total Time Total Time Spent: Greater Than 30 Minutes Total Time Includes: Examination of the patient, Discharge Planning, Medication Reconciliation and Communication with other providers Hospital Course (1) Overdose of trazodone: 04/15 - Patient has had 3-4 intentional overdoses, poor insight into triggers/reasons for his behavior. Explore and process in groups/therapy. - Continue inpatient treatment, coordinate with outpatient clinicians, both informed, send records. - Trazodone discontinued, as patient has overdosed on it 3-4 times now, and does not like it for sleep d/t am sedation. Family meeting with parents, recommend comprehensive safety plan including all medications locked and secured, no access to large amounts of pills, no alcohol. 04/16 - Pt continues to tolerate decision for trazodone to be discontinued. - Family meeting today with parents. Pt primarily focused on discharge; however, they were able to discuss plan for parental supervision and participat ion with safety planning. Medications will be secured, no guns in home, and parents will distribute medications when appropriate. - Pt denying SI 04/17 - Pt did open up to staff last evening, admitting that his overdose was, in fact, as suicide attempt - We discussed patient's reported confusion related to his episode of suicidality, as he maintains that his mood has been stable for the past 2 years and he is confused that he has not been feeling particularly depressed. (2) Depression: 04/15 - Resume fluoxetine 20mg, as patient reports it has been effective and well tolerated. Has been on doses up to 40mg in the past. - Education provided re: diagnoses and treatment recommendations, including medications and therapy. - Encourage group attendance and participation, work on healthy coping skills and discharge safety plan. - Work on sleep hygiene, as playing video games late into the night, drinking excessive caffeine. 04/16 - Home dose of fluoxetine reportedly 30mg - will titrate to this dose for tomorrow morning - Continued education regarding diagnosis and expected benefits of inpatient psychiatric treatment. Pt was encouraged to continue attending groups, despite frustration with length of stay, as it is felt there are still benefits to be gained from further hospitalization - Pt was offered 72-hour notice and declined. He mentioned transfer requested - this was offered and also declined by the patient. - Pt did proactively secure outpatient appointments with his psychiatric providers - He is requesting referral to partial hospitalization programs, requesting that this may reduce his length of stay - we will attempt to reach out to requested facilities, but ability to accommodate this was not guaranteed. 04/17 - Continue fluoxetine 30mg daily - patient denied feeling as though further titration would be necessary at this time - Pt was commended for opening up with staff about the events leading to his overdose, and admitting recurrence of SI. He was able to identify some factors that may have contributed, specifically alcohol use. - Pt continues to deny active SI and reports willingness to continue to engage in treatment. We discussed following through with anticipated discharge tomorrow to allow the patient additional time to process in groups Mental Health & Subst Abuse Tx Psychiatrist Name of Psychiatrist: Dr Christensen Psychiatrist's Date of Appointment with Psychiatrist: 04/23/20 Time of Appointment with Psychiatrist: 2:00pm Therapist Name of Therapist: Zuleika Spivey Therapist's Date of Therapist Appointment: 04/19/20 Time of Therapist Appointment: 1:00 Product Development Technician Name of Product Development Technician: [facility] Phone Number for Product Development Technician: [phone] Date of Appointment with Product Development Technician: 04/20/20 Time of Appointment with Product Development Technician: 1pm Case Management Appointment Comment: Dada will call you Post Discharge Appointments Primary Care Physician Name Of Family Doctor: per pt last PCP left the area, not currently established Primary Care Provider Appointment Comment: Pt does not want records sent to PCP office as he says last PCP left Smoking Cessation Counseling Tobacco Cessation Medication Prescribed at Discharge: Not Applicable/Non-Smoker Contact Information Discharge Discharge Address: [address] [place] [address] [place] [address] Discharge Plan Discharge Items Patient Disposition: Home - Self-Care Reason For Visit: UNSPECIFIED DEPRESSION Discharge Diagnosis: Depression NOS, intentional overdose Condition on Discharge: Fair Activity: Per Instructions section Non-emergency contact: Psychiatrist and Therapist Call non-emergency contact if: you have any medication questions and your symptoms worsen Follow-up/Referrals: [facility]s [facility] [Primary Care Provider] - Diet: Regular Addtl Attending Provider Instructions: SPECIAL CARE INSTRUCTIONS: 1. Follow through with your scheduled aftercare appointments. If unable to keep an appointment, please call to reschedule. 2. Take your medication only as prescribed. Medication should not be changed or stopped without the approval of your doctor. In the event of worsening symptoms or concerns about side effects, contact your doctor immediately. 3. Utilize new healthy coping skills, anger management skills, and stress management skills learned during your hospitalization. Journal feelings and process them with a support person. Identify stressors or situations that may result in relapse, deterioration or inappropriate behaviors and develop a plan to deal with those issues. 4. If your coping skills are ineffective and you are in crisis, contact your outpatient providers for direction. If unable to reach your providers, please call the [facility] CRISIS LINE AT , go to the [facility] walk-in center at [address], [address], [place], or go to the closest Emergency Room. 5. Avoid alcohol and un-prescribed drugs. 6. You have been provided with the Mental Health Advance Directives Pamphlet for your review. AFTERCARE APPOINTMENTS: * Please call your insurance company prior to your scheduled appointment to confirm your aftercare providers are covered. Take your insurance information to your appointments. WHO TO CALL AND WHEN: Medical Emergencies: For questions or emergencies related to your hospital stay, please contact the Inpatient Behavioral Health Unit at [phone]. A eap clinician is on-call 25/12 for the Behavioral Health Unit for emergencies At any time you feel your situation is an emergency, you may also call 911 immediately. Pending Studies at Discharge: No Stand-Alone Forms: My [facility], Smoking Cessation Medications and DC Order Prescriptions: New fluoxetine 10 mg Capsule 30 mg PO QAM Qty: 1 RF: 0 Discontinued fluoxetine 20 mg capsule 20 mg PO DAILY RF: 0 Discharge Orders: Discharge Order (Routine); Ordered 04/18/20 Ordered By: Devora Javed Admission Data Admit Date/Time: 04/14/20 21:15 Attending Provider: Devora Javed Admit Provider: Jace Mclain Primary Care Provider: [facility] Other Interventions: Discharge Summary Assessment (RN) Last Done: 04/18/20 09:30 PSY Interdisciplinary Discharge Planning Last Done: 04/18/20 09:32 Coding Level of Care Code 03821 D/C day mgmt > 30 min Diagnoses Overdose of trazodone T43.211A Depression F32.9 Depression Type: unspecified
[2020-04-18] MEDS: FLUoxetine HCL 10 MG CAP PO SCH (08:31)
== END 2020-04-18 10:42 | disposition home or self-care (01) | DRG 885 ==
LOC: 3S 21:15